=== PATIENT | male | born 1960 | race Caucasian/White ===

== ENCOUNTER 2017-10-04 08:13 | Inpatient (IN) ==
--- NOTE | 2017-10-04 08:26 | Emergency Department Report ---
General Adult HPI - General Chief complaint: Recheck/Abnormal Lab/Rx Stated complaint: critical high sodium level Time Seen by Provider: 10/04/17 08:20 Source: patient, other (ID STAFF, ID RECORDS) Mode of arrival: wheelchair Limitations: other (Non-verbal patient. ) - History of Present Illness HPI narrative: 57-year-old male presents to the emergency department from [facility] for evaluation regarding an elevated sodium level of 163. Patient has not been eating or drinking well recently. Patient is nonverbal with a history of cerebral palsy. He is at baseline mental status per [facility] staff. History is limited secondary to the cerebral palsy and the patient being nonverbal. No other obvious complaints or associated symptoms. He was at [facility] when his symptoms began a few days ago. Patient's durable power of attorney law clerk does not wish to pursue a feeding tube at this time. Patient is a do not resuscitate. - Related Data Home Medications Medication Instructions Recorded Confirmed Acetaminophen Supp [Tylenol Supp] 650 mg RECTALLY Q4H PRN 10/04/17 10/04/17 Acetaminophen [Acetaminophen Extra 1,000 mg PO TIDWM 10/04/17 10/04/17 Strength] Bisacodyl Supp [Dulcolax] 10 mg RECTALLY HS 10/04/17 10/04/17 Fleet Phospho-Soda Enema [Fleet 1 enema RECTALLY DAILY PRN 10/04/17 10/04/17 Enema] Gabapentin [Neurontin] 100 mg PO BID 10/04/17 10/04/17 Mag Hydrox/Aluminum Hyd/Simeth 30 ml PO Q4H PRN 10/04/17 10/04/17 [Alum-Mag Hydroxide-Simeth Liq] Magnesium Hydroxide [Milk of 30 ml PO Q12H PRN 10/04/17 10/04/17 Magnesia] Peg 3350 238 G Bottle [Miralax] 17 gm PO DAILY 10/04/17 10/04/17 Petrolatum,White/Lanolin [Vitamin 1 applicatio TP BID 10/04/17 10/04/17 A & D Ointment] Senna + Docusate [Senna Plus 2 tab PO PM 10/04/17 10/04/17 Tablet] Tramadol [Ultram] 50 mg PO DAILY PRN 10/04/17 10/04/17 Tramadol [Ultram] 50 mg PO QID 10/04/17 10/04/17 Allergies Allergy/AdvReac Type Severity Reaction Status Date / Time Penicillins Allergy Unknown Verified 10/04/17 08:59 Prostacyclin Analogues Allergy Unknown Verified 10/04/17 08:59 smallpox vaccine,live Allergy Unknown Verified 10/04/17 08:59 PROSTAPHLIN SMALL VACCINE AdvReac Unknown Uncoded 10/04/17 08:59 Review of Systems Limitations: ROS unobtainable due to patient's medical condition [facility] Patient Stated Medical History Gastroesophageal Reflux Yes Disease Other GI Yes: CONSTIPATION Other Hematologic Yes: LEUKOCYTOPENIA Medical History Updates: (1) Allergic rhinitis. (2) Seasonal allergies. (3) Cerebral palsy, quadriplegic. (4) MRSA abscesses. (5) Aspiration pneumonia. ( 6) Small bowel obstruction. (7) UTI (urinary tract infection). (8) Ileus. (9 ) Dextroscoliosis. (10) Fecal impaction of colon. (11) Constipation. (12) Hyperosmolality with hypernatremia. (13) Protein-calorie malnutrition, moderate. (14) Severe sepsis with acute organ dysfunction. (15) GERD ( gastroesophageal reflux disease). 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 - Social History Smoking status: Never smoker Substance use type: does not use Alcohol intake frequency: does not drink Physical Exam - Limitations Limitations: other (Non-verbal) - General General appearance: alert, in no apparent distress - Normal Exams: Head:: Normocephalic without trauma Eyes:: Pupils are PERRLA w/ EOMI, No scleral icterus, irritation, or foreign bodies noted ENMT:: No facial trauma, nasal exudates, pharyngeal erythema, or exudates are noted Dental: No fractured, loose, or missing teeth noted Neck:: without adenopathy Chest/Respirations:: Clear all brown, with good airflow, and symmetry bilaterally Cardiovascular:: Regular rate and rhythm, without murmur or gallop, Pulses 2+ all extremities, capillary refill, <2 seconds all extremities Abdomen:: Bowel sounds positive, soft, non-tender, non-distended, no hepatosplenomegaly, masses or bruits noted Lymphatic:: No lymphadenopathy, or lymphedema noted Musculoskeletal:: No tenderness, or deformity noted (+ chronic contractures noted. ), all extremities Integumentary:: No rashes, hives, or bruising noted, hair and nails, without abnormality Neurological:: Patient is alert Course Vital Signs Temperature 99.2 F 10/04/17 08:19 Respiratory Rate 17 10/04/17 08:19 Blood Pressure 108/70 10/04/17 08:19 Pulse Oximetry 96 10/04/17 08:19 Temperature 99.2 F 10/04/17 08:19 Pulse Rate 103 H 10/04/17 09:00 Respiratory Rate 17 10/04/17 08:19 Blood Pressure 102/65 10/04/17 09:00 Pulse Oximetry 96 10/04/17 08:19 Medical Decision Making - [facility] Narrative Medical decision making narrative: Labs / imaging were discussed in detail with Dr. Brito who is the hospitalist. Dr. Brito will accept the patient to her service for further evaluation and treatment. Patient appears to be suffering from dehydration and hypernatremia. Patient is given 500 mL of normal saline intravenously times one. Dr. Brito will handle antibiotic therapy as indicated following culture of urine at her request. Patient is admitted to the service of the hospitalist in improved condition. No further orders from accepting physician who is in agreement with the current plan of management. - Differential Diagnosis dehydration, metabolic disorder, pneumonia, UTI - Lab Data Lab Results 10/04/17 10/04/17 Range/Units 05:56 09:11 Troponin I < 0.012 (0-0.12) ng/ml Specimen Hemolysis 31 H (0-25) Ur Collection Type Urine, void-cc/notcc Urine Color [place] (YELLOW) Urine Clarity Cloudy Urine pH 6.0 (5.0-8.0) Ur Specific [place] 1.025 (1.015-1.025) Urine Protein 2+ A (NEGATIVE) Urine Glucose (UA) Negative (NEGATIVE) Urine Ketones Negative (NEGATIVE) Urine Occult Blood 3+ A (NEGATIVE) Urine Nitrate Positive A (NEGATIVE) Urine Bilirubin 1+ A (NEGATIVE) Urine Urobilinogen 4.0 A (NORMAL) EU/DL Ur Leukocyte Esterase 2+ A (NEGATIVE) Urine RBC 10-20 H (0-3) /HPF Urine WBC Tntc H (0-5) /HPF Urine WBC Clumps Few Urine Bacteria 4+ H (NEGATIVE) Ur Culture Indicated? Cult reflexed &setup - Radiology Data CXR - No obvious acute processes. - EKG Data EKG #1 EKG results narrative: Sinus tachycardia. 104 bpm. No STEMI. Disposition Time of Disposition: 09:20 (admit. Dr. Moran. ) - Seen By: physician
--- NOTE | 2017-10-04 09:27 | XRay Report ---
Indication: abnormal labs PROCEDURE: XR chest 1V: Encounter: Initial Comparison: April 19, 2015 Findings: Chest appears grossly stable. No focal consolidative pneumonia, gross pleural effusion or pneumothorax. Patient is rotated and angulated. Cardiomediastinal contours are grossly stable. Prior left IJ line has been removed. Overlying attending leads. Significant scoliosis in the thoracic spine. Impression: Grossly stable chest without acute cardiopulmonary disease. .
[2017-10-04] MEDS: SALINE FLUSH 10ml SYRINGE IVF PRN (09:49)
[2017-10-04 10:30] VITALS: BMI 20.9
[2017-10-04] MEDS ORDERED: ACETAMINOPHEN 650 MG SUPPOSITORY PR PRN ×2 (10:54→12:01)
--- NOTE | 2017-10-04 11:02 | History & Physical Report ---
History of Present Illness Date: 10/04/17 HPI: Fermin Dougherty is a 57 year old male who was admitted to the hospitalist service for severe hypernatremia (163). 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 History was obtained from his nurse at [facility]: Bradly has not been eating well for the last 2-3 weeks. He will only have a couple bites, if anything, but sometimes they can encourage him to drink a Mighty Shake. He has been clamping his lips together each time thickened liquids were offered. He's lost nearly 20 lbs over the last couple of months. The staff there ensure that he has a bowel movement at least every 2 days because he has a history of bowel obstructions. Sometimes his bowel movements are purely mucoid , but he did have a medium sized bowel movement on 10/03/17. He has not had a fever or any other signs of illness or changes, though it's been recently recommended that he have all his teeth extracted. He was on antibiotics in August for a dental infection. He was seen by Dr. Tran on 10/02/17, who ordered labs which were drawn on 10/04/17. Once the abnormal sodium level was reported, Dr. Tran recommended further evaluation at the hospital. Review of Systems ROS unobtainable: due to mental status Past Medical History Post measles encephalitis Spastic quadriplegia Allergic rhinitis MRSA abscesses Aspiration pneumonia Recurrent Small bowel obstruction History of UTI (urinary tract infection) Dextroscoliosis Fecal impaction of colon Constipation GERD (gastroesophageal reflux disease) Surgical History: EGD April, (Dr. Cramer): Unable to place PEG d/t abnormal anatomy. I & D Abscess of right shoulder in 2013 Family History Updates: Unobtainable - Social History Smoking status: Never smoker Substance use type: does not use Alcohol intake frequency: does not drink Housing: alf ([facility]) Social history: PCP: Dr. Tran Sister is DPOA Medications Home Medications Medication Instructions Recorded Confirmed Type Acetaminophen Supp [Tylenol Supp] 650 mg RECTALLY Q4H PRN 10/04/17 10/04/17 History Acetaminophen [Acetaminophen Extra 1,000 mg PO TIDWM 10/04/17 10/04/17 History Strength] Bisacodyl Supp [Dulcolax] 10 mg RECTALLY HS 10/04/17 10/04/17 History Fleet Phospho-Soda Enema [Fleet 1 enema RECTALLY DAILY PRN 10/04/17 10/04/17 History Enema] Gabapentin [Neurontin] 100 mg PO BID 10/04/17 10/04/17 History Mag Hydrox/Aluminum Hyd/Simeth 30 ml PO Q4H PRN 10/04/17 10/04/17 History [Alum-Mag Hydroxide-Simeth Liq] Magnesium Hydroxide [Milk of 30 ml PO Q12H PRN 10/04/17 10/04/17 History Magnesia] Peg 3350 238 G Bottle [Miralax] 17 gm PO DAILY 10/04/17 10/04/17 History Petrolatum,White/Lanolin [Vitamin 1 applicatio TP BID 10/04/17 10/04/17 History A & D Ointment] Senna + Docusate [Senna Plus 2 tab PO PM 10/04/17 10/04/17 History Tablet] Tramadol [Ultram] 50 mg PO DAILY PRN 10/04/17 10/04/17 History Tramadol [Ultram] 50 mg PO QID 10/04/17 10/04/17 History Allergies Allergy/AdvReac Type Severity Reaction Status Date / Time epoprostenol Allergy Unknown Verified 10/04/17 10:47 Penicillins Allergy Unknown Verified 10/04/17 08:59 Prostacyclin Analogues Allergy Unknown Verified 10/04/17 08:59 smallpox vaccine,live Allergy Unknown Verified 10/04/17 08:59 PROSTAPHLIN SMALL VACCINE AdvReac Unknown Uncoded 10/04/17 08:59 Exam Vital Signs: Temperature 98.7 F 10/04/17 10:17 Pulse Rate 80 10/04/17 10:17 Respiratory Rate 12 10/04/17 10:17 Blood Pressure 130/81 10/04/17 10:17 Pulse Oximetry 97 10/04/17 10:17 Height/Weight/BMI: Height 1.45 m Weight 43.9 kg Body Mass Index 20.9 - Constitutional Present: thin - Routine HEENT Exam Eye: Absent: conjunctival icterus, scleral injection ENT: Present: mucous membranes dry. Absent: dentition normal - Routine Neck Exam Present: supple - Routine Respiratory Exam Present: CTA bilaterally - Routine Cardiovascular Exam Present: RRR, S1, S2 - Routine Abdominal Exam Present: soft, non distended, non tender. Absent: normoactive bowel sounds ( hypoactive) - Routine Extremities Exam Present: no edema, pulses intact - Routine Skin Exam Present: intact, dry, warm, wounds (RN reports a small area of erythema on his back) - Routine Neurological Exam Present: alert (at baseline), motor deficit. Absent: moving all extremities, normal speech - Routine Psychiatric Exam Present: unable to assess Results - Labs CBC & Chem 7: 10/04/17 11:23 Assessment and Plan (1) Hypernatremia Current visit: Yes Status: Acute Assessment and Plan: IMPRESSION Severe hypernatremia [163] POA leukocytosis [11.7] POA Possible UTI vs asymptomatic bacteruria Post measles encephalitis Spastic quadriplegia Allergic rhinitis MRSA abscesses Aspiration pneumonia Recurrent Small bowel obstruction History of UTI (urinary tract infection) Dextroscoliosis Fecal impaction of colon Constipation GERD (gastroesophageal reflux disease) PLAN Admit to the hospitalist service, observation status. Recheck Na now and trend every 6 hours. Start D5W at 60 mL/hr with a goal sodium reduction of no more than 10 mEq/L over the next 24 hours. History of SBO: check abdominal film. UA indicative of UTI, minimally elevated wbc, however he is afebrile. He is incontinent of B/B. Send for culture and monitor symptoms for now. Consult speech therapy. Of note, PEG placement has been considered but EGD in 2014 revealed a gastric anatomy that was not conducive to PEG placement. Other pertinent labs checked this am: Hgb 15.6, K 3.9, BUN 28, Cr 0.8, TSH 0.65 , prealbumin 26.5. Code status: DNR. Discussed with [facility] staff, old records reviewed. DVT Prophylaxis: SCD's GI Prophylaxis: Protonix Resuscitation Status: Do Not Resuscitate - Physician Narrative Narrative: Date: 10/04/17 Time: 1050 I have independently evaluated and examined this patient. I reviewed the chart, the patient's history, and the CLOTH BEAMER/PA's documented findings as above. We discussed and formulated the assessment and plan as above with additions as below. Patient is nonverbal. History as outlined above. In general, the patient is alert, nonverbal cooperative with exam, and in no respiratory distress.Severe scoliosis noted. HEENT: Head is atraumatic, normocephalic, no conjunctival petechiae, no oral thrush, mucous membranes are dry, he has very poor dentition. Lungs: Clear to auscultation without wheezes, crackles or rhonchi, poor respiratory effort CV: Regular rate and rhythm without murmur Abdomen: Soft, scaphoid, nontender, bowel sounds are present, there is no guarding no rebound. Extremities: No clubbing, no cyanosis, no edema. Marked deformity especially in hands. Skin: Warm and dry ,no sign of rash Neuro: Patient is cooperative but nonverbal Will replace sodium slowly. May need to address shelter goals with DPOA if pt's po intake does not improve. Previous attempts at placing a PEG were unsuccessful secondary to anatomy. Pt has poor dentition-apparently it has been recommended that he undergo a full mouth extraction- ? dental pain be the reason why the pt has stopped taking po recently. Hospital Course Summary Disclaimer: The visit summary below is not to be considered part of the above Progress Note. Hospital Course: 10/04/17 Admit to the hospitalist service, observation status. Recheck Na now and trend every 6 hours. Start D5W at 60 mL/hr with a goal sodium reduction of no more than 10 mEq/L over the next 24 hours. History of SBO: check abdominal film. UA indicative of UTI, minimally elevated wbc, however he is afebrile. He is incontinent of B/B. Send for culture and monitor symptoms for now. Consult speech therapy. Of note, PEG placement has been considered but EGD in 2014 revealed a gastric anatomy that was not conducive to PEG placement. Other pertinent labs checked this am: Hgb 15.6, K 3.9, BUN 28, Cr 0.8, TSH 0.65 , prealbumin 26.5. Code status: DNR.
[2017-10-04] MEDS: D5W 1,000 ML IV SCH (11:43)
[2017-10-04] MEDS ORDERED: ACETAMINOPHEN 500 MG TABLET PO SCH (12:00)
[2017-10-04] MEDS ORDERED: TRAMADOL 50 MG TABLET PO PRN (12:05)
--- NOTE | 2017-10-04 12:13 | XRay Report ---
Indication: history of SBO PROCEDURE: XR abdomen 1V: Encounter: Initial Comparison: April 08, 2015 Findings: Diffusely gas-filled small and large bowel without focal dilatation or evidence of acute obstruction. Gastrostomy tube noted. No gross free air on these supine views. Mild stool burden in the colon. Bony structures show no acute findings. Impression: No evidence of acute obstruction. .
[2017-10-04] MEDS ORDERED: TRAMADOL 50 MG TABLET PO SCH (13:00)
[2017-10-04] MEDS ORDERED: PANTOPRAZOLE 20 MG TABLET PO SCH (17:00)
[2017-10-04] MEDS: SENNA + DOCUSATE TABLET PO SCH (21:06)
[2017-10-04] MEDS: GABAPENTIN 100 MG CAPSULE PO SCH (21:06)
[2017-10-04] MEDS: VITAMINS A TOP SCH (22:13)
[2017-10-04] MEDS: [UNRECOGNIZED DRUG - OTHER] TOP SCH (22:13)
[2017-10-04] MEDS: BISACODYL 10 MG SUPPOSITORY RECTALLY SCH (22:13)
[2017-10-05] MEDS: D5W 1,000 ML IV SCH ×2 (03:02→20:03)
[2017-10-05] MEDS: GABAPENTIN 100 MG CAPSULE PO SCH ×3 (08:52→20:10)
--- NOTE | 2017-10-05 13:13 | Progress Note ---
- Date 10/05/17 Subjective: Bradly is seen this morning while resting in bed. He is alert with open eyes however, remains nonverbal during examination. Sleep make eye contact, however, then looks away to the left. It is noted that he often puts his fingers in his mouth, however. Nursing staff reports this is a normal behavior for him. He also chronically grinds his teeth. He was seen by speech therapy this morning. Objective Vital signs: Temperature 97.7 F 10/05/17 08:00 Pulse Rate 100 10/05/17 08:00 Respiratory Rate 16 10/05/17 08:00 Blood Pressure 109/67 10/05/17 08:00 Pulse Oximetry 97 10/05/17 08:00 - Constitutional Present: no acute distress, well nourished, well developed - Routine HEENT Exam Eye: Present: EOMI ENT: Present: mucous membranes moist, dentition normal - Routine Respiratory Exam Present: CTA bilaterally. Absent: wheezes - Routine Cardiovascular Exam Present: RRR, S1, S2. Absent: murmur - Routine Abdominal Exam Present: soft, normoactive bowel sounds, non distended. Absent: tenderness - Routine Extremities Exam Present: no edema - Routine Skin Exam Present: intact, dry, warm - Routine Neurological Exam Present: alert, CN II-XII intact - Routine Lymphatic Exam Lymphatic: Absent: adenopathy - Routine Psychiatric Exam Present: cooperative Results - Labs CBC & Chem 7: 10/05/17 10:53 Assessment and Plan (1) Hypernatremia Current visit: Yes Status: Acute Assessment and Plan: IMPRESSION Severe hypernatremia [163] POA Leukocytosis [11.7] POA Dysphagia Possible UTI vs asymptomatic bacteruria Post measles encephalitis Spastic quadriplegia Allergic rhinitis HX of MRSA abscesses Hx of aspiration pneumonia Hx of recurrent small bowel obstruction Hx of UTI (urinary tract infection) Dextroscoliosis Constipation Hx of fecal impaction of colon GERD (gastroesophageal reflux disease) PLAN Given persistent severe hypernatremia, will change status to inpatient. Continue to monitor serial sodium levels every 6 hours. Sodium does continue to slowly trend down. Continues to be on D5W at 60 ML per hour. Discussed with speech therapy. Recommends pured diet with syrup and nectar fluids and crushed medications. Encourage PO intake. Awaiting C/S of urine prior to initiation of antibiotic therapy, as this may be asymptomatic bacteruria. Patient does not appear to have any acute symptoms and does not appear septic at this time. We will continue to follow routine labs, and monitor for fever. At this time Urine culture reveals no growth. Case discussed with attending, Dr Gil. DVT Prophylaxis: SCD's Resuscitation Status: Do Not Resuscitate - Time spent with patient Time with patient PN: 25 minutes - Physician Narrative Physician: Nitesh Gil MD Narrative: Date: 10/05/17 Time: 1430 Have independently interviewed and examined pt. Chart reviewed. Case discussed with CM and my DIRECTOR [employer]ENCY. Care plan developed with my supervision; agree with above. Resting in bed-eyes open, but non verbal. Not restless or agitated. Sodium decreasing gradually. Breathing stable. Lungs: decreased, no distress CV: regular EXT: thin, no edema. MSE: awake no agitation Plan: Continue with IVF. Check on urine culture - not seeing signs of sepsis at this time. Likely able to decrease frequency of sodium check as is decreasing slowly. Will recheck lab tomorrow. Hospital Course Summary Disclaimer: The visit summary below is not to be considered part of the above Progress Note. Hospital Course: 10/04/17 Admission - OBS status Admit to the hospitalist service, observation status. Recheck Na now and trend every 6 hours. Start D5W at 60 mL/hr with a goal sodium reduction of no more than 10 mEq/L over the next 24 hours. History of SBO: check abdominal film. UA indicative of UTI, minimally elevated wbc, however he is afebrile. He is incontinent of B/B. Send for culture and monitor symptoms for now. Consult speech therapy. Of note, PEG placement has been considered but EGD in 2014 revealed a gastric anatomy that was not conducive to PEG placement. Other pertinent labs checked this am: Hgb 15.6, K 3.9, BUN 28, Cr 0.8, TSH 0.65 , prealbumin 26.5. Code status: DNR. 10/05/17 Given persistent severe hypernatremia, will change status to inpatient. Continue to monitor serial sodium levels every 6 hours. Sodium does continue to slowly trend down. Continues to be on D5W at 60 ML per hour. Discussed with speech therapy. Recommends pured diet with syrup and nectar fluids and crushed medications. Encourage PO intake. Awaiting C/S of urine prior to initiation of antibiotic therapy, as this may be asymptomatic bacteruria. Patient does not appear to have any acute symptoms and does not appear septic at this time. We will continue to follow routine labs, and monitor for fever. At this time Urine culture reveals no growth.
[2017-10-05] MEDS: [UNRECOGNIZED DRUG - OTHER] TOP SCH ×2 (16:25→20:05)
[2017-10-05] MEDS: VITAMINS A TOP SCH ×2 (16:25→20:05)
[2017-10-05] MEDS: SENNA + DOCUSATE TABLET PO SCH ×2 (20:05→20:10)
[2017-10-05] MEDS: BISACODYL 10 MG SUPPOSITORY RECTALLY SCH (20:05)
[2017-10-06] MEDS: GABAPENTIN 100 MG CAPSULE PO SCH ×2 (08:05→22:56)
[2017-10-06] MEDS: [UNRECOGNIZED DRUG - OTHER] TOP SCH ×2 (08:06→22:57)
[2017-10-06] MEDS: VITAMINS A TOP SCH ×2 (08:06→22:57)
[2017-10-06] MEDS: CEFTRIAXONE 1 G in NS 50 ML IV SCH (11:51)
[2017-10-06] MEDS: SALINE FLUSH 10ml SYRINGE IVF PRN (11:53)
--- NOTE | 2017-10-06 13:06 | Progress Note ---
- Date 10/06/17 Subjective: Ladonna is seen this morning in follow-up for severe hypernatremia. He is alert, does not appear to be in any acute distress. He does remain nonverbal as this is his baseline. Due to his cerebral palsy. Has been eating. Diet with assistance from staff, ported he ate approximately 25% of dinner him and bites of breakfast. Objective Vital signs: Temperature 98.9 F 10/06/17 07:56 Pulse Rate 94 10/06/17 07:56 Respiratory Rate 20 10/06/17 07:56 Blood Pressure 95/63 10/06/17 07:56 Pulse Oximetry 94 10/06/17 07:56 Height/Weight/BMI: Height 1.45 m Weight 48.5 kg Body Mass Index 20.9 - Constitutional Present: no acute distress, well nourished, well developed - Routine HEENT Exam Eye: Present: EOMI ENT: Present: mucous membranes moist, dentition normal - Routine Respiratory Exam Present: CTA bilaterally. Absent: wheezes - Routine Cardiovascular Exam Present: RRR, S1, S2. Absent: murmur - Routine Abdominal Exam Present: soft, normoactive bowel sounds, non distended. Absent: tenderness - Routine Skin Exam Present: intact, dry, warm - Routine Neurological Exam Present: alert, CN II-XII intact, altered mental status - Routine Lymphatic Exam Lymphatic: Absent: adenopathy - Routine Psychiatric Exam Present: normal affect (baseline mentation), cooperative Results - Labs CBC & Chem 7: 10/06/17 03:54 10/06/17 03:54 Assessment and Plan (1) Hypernatremia Current visit: Yes Status: Acute Assessment and Plan: IMPRESSION Severe hypernatremia [163] POA Leukocytosis [11.7] POA Dysphagia UTI with E. coli - sensitive to Rocephin Post measles encephalitis Spastic quadriplegia Allergic rhinitis HX of MRSA abscesses Hx of aspiration pneumonia Hx of recurrent small bowel obstruction Hx of UTI (urinary tract infection) Dextroscoliosis Constipation Hx of fecal impaction of colon GERD (gastroesophageal reflux disease) PLAN Sodium continues to trend down slowly, today at 151. Potassium remains normal. In culture did grow positive for Escherichia coli. Patient started on IV Rocephin for antimicrobial coverage. White count was noted to be elevated at 14.9 this morning. He remains afebrile. Continue to encourage oral intake - pureed with thickened liquids. Discussed with attending, Dr Gil. DVT Prophylaxis: SCD's Resuscitation Status: Do Not Resuscitate - Time spent with patient Time with patient PN: 25 minutes - Physician Narrative Narrative: Date: 10/06/17 Time: 1615 Have independently interviewed and examined pt. Chart reviewed. Case discussed with my TABLE GAMES SHIFT MANAGER. Care plan developed with my supervision; agree with above. Resting in bed, eyes open but nonverbal. Oral drive with slight increase. Breathing well. Lungs: decreased, no distress CV: regular EXT: thin, no edema. Plan: Continue with D5W for hydration. Start Rocephin for urinary coverage. Encourage oral intake. Monitor lab. Hospital Course Summary Disclaimer: The visit summary below is not to be considered part of the above Progress Note. Hospital Course: 10/04/17 Admission - OBS status Admit to the hospitalist service, observation status. Recheck Na now and trend every 6 hours. Start D5W at 60 mL/hr with a goal sodium reduction of no more than 10 mEq/L over the next 24 hours. History of SBO: check abdominal film. UA indicative of UTI, minimally elevated wbc, however he is afebrile. He is incontinent of B/B. Send for culture and monitor symptoms for now. Consult speech therapy. Of note, PEG placement has been considered but EGD in 2014 revealed a gastric anatomy that was not conducive to PEG placement. Other pertinent labs checked this am: Hgb 15.6, K 3.9, BUN 28, Cr 0.8, TSH 0.65 , prealbumin 26.5. Code status: DNR. 10/05/17 Given persistent severe hypernatremia, will change status to inpatient. Continue to monitor serial sodium levels every 6 hours. Sodium does continue to slowly trend down. Continues to be on D5W at 60 ML per hour. Discussed with speech therapy. Recommends pured diet with syrup and nectar fluids and crushed medications. Encourage PO intake. Awaiting C/S of urine prior to initiation of antibiotic therapy, as this may be asymptomatic bacteruria. Patient does not appear to have any acute symptoms and does not appear septic at this time. We will continue to follow routine labs, and monitor for fever. At this time Urine culture reveals no growth. 10/06/17 Sodium continues to trend down slowly, today at 151. Potassium remains normal In culture did grow positive for Escherichia coli. Patient started on IV Rocephin for antimicrobial coverage. White count was noted to be elevated at 14.9 this morning. He remains afebrile Continue to encourage oral intake- pureed with thickened liquids
[2017-10-06] MEDS: D5W 1,000 ML IV SCH (14:40)
[2017-10-06] MEDS: BISACODYL 10 MG SUPPOSITORY RECTALLY SCH (22:56)
[2017-10-06] MEDS: SENNA + DOCUSATE TABLET PO SCH (22:56)
[2017-10-07] MEDS: D5W 1,000 ML IV SCH (09:01)
[2017-10-07] MEDS: GABAPENTIN 100 MG CAPSULE PO SCH ×2 (09:01→20:08)
[2017-10-07] MEDS: VITAMINS A TOP SCH ×2 (09:03→20:08)
[2017-10-07] MEDS: [UNRECOGNIZED DRUG - OTHER] TOP SCH ×2 (09:03→20:08)
--- NOTE | 2017-10-07 09:18 | Progress Note ---
- Date 10/07/17 Subjective: Bradly is seen this morning while resting in bed. He is resting comfortably without distress, alert with eyes open. Bowels moving regularly. Vitals reviewed BP 97/65. Objective Vital signs: Temperature 96.4 F L 10/06/17 23:17 Pulse Rate 104 H 10/07/17 08:00 Respiratory Rate 14 10/06/17 23:17 Blood Pressure 97/65 10/07/17 08:00 Pulse Oximetry 95 10/07/17 08:00 Height/Weight/BMI: Height 1.45 m Weight 47.4 kg Body Mass Index 20.9 - Constitutional Present: no acute distress, well nourished, well developed - Routine HEENT Exam Eye: Present: EOMI ENT: Present: mucous membranes moist, dentition normal - Routine Respiratory Exam Present: CTA bilaterally. Absent: wheezes - Routine Cardiovascular Exam Present: RRR, S1, S2. Absent: murmur - Routine Abdominal Exam Present: soft, normoactive bowel sounds, non distended. Absent: tenderness - Routine Extremities Exam Present: normal capillary refill - Routine Skin Exam Present: intact, dry, warm - Routine Neurological Exam Present: alert, oriented X3, CN II-XII intact - Routine Lymphatic Exam Lymphatic: Absent: adenopathy - Routine Psychiatric Exam Present: normal affect Results - Labs CBC & Chem 7: 10/07/17 04:20 10/07/17 04:20 Assessment and Plan (1) Hypernatremia Current visit: Yes Status: Acute Assessment and Plan: IMPRESSION Severe hypernatremia [163] POA UTI with E. coli - sensitive to Rocephin Leukocytosis [11.7] POA Dysphagia Post measles encephalitis Spastic quadriplegia Allergic rhinitis HX of MRSA abscesses Hx of aspiration pneumonia Hx of recurrent small bowel obstruction Hx of UTI (urinary tract infection) Dextroscoliosis Constipation Hx of fecal impaction of colon GERD (gastroesophageal reflux disease) PLAN Sodium continues to Improve- NA today 148. Continues on D5W IV fluids Continues on IV Rocephin for antimicrobial coverage. Hypokalemia potassium 3.2 today. Will given one time PO dose of potassium supplementation Continue to encourage oral intake - pureed with thickened liquids. Discussed with attending, Dr Gil. Detweoler Will change IVF to D5W with 20mEq KCl at 75cc/hr. DVT Prophylaxis: SCD's Resuscitation Status: Do Not Resuscitate - Time spent with patient Time with patient PN: 25 minutes - Physician Narrative Physician: Nitesh Gil MD Narrative: Date: 10/07/17 Time: 1120 Have independently interviewed and examined pt. Chart reviewed. Case discussed with my AUTOMOTIVE SOFTWARE ENGINEER. Care plan developed with my supervision; agree with above. Resting in bed-eyes open, moves head and left arm. Non verbal. Sodium improving. Oral drive decrease but making slow gains. Breathing well. Had 2 stools yesterday. Lungs: decreased, no crackles or wheezes; breathing comfortably on RA without distress. CV: regular EXT: thin, no edema Plan: Will change IVF to D5W with 20KCl at 75cc/hr. Continue with Rocephin for urinary coverage. Encourage oral intake. Monitor lab. Hospital Course Summary Disclaimer: The visit summary below is not to be considered part of the above Progress Note. Hospital Course: 10/04/17 Admission - OBS status Admit to the hospitalist service, observation status. Recheck Na now and trend every 6 hours. Start D5W at 60 mL/hr with a goal sodium reduction of no more than 10 mEq/L over the next 24 hours. History of SBO: check abdominal film. UA indicative of UTI, minimally elevated wbc, however he is afebrile. He is incontinent of B/B. Send for culture and monitor symptoms for now. Consult speech therapy. Of note, PEG placement has been considered but EGD in 2014 revealed a gastric anatomy that was not conducive to PEG placement. Other pertinent labs checked this am: Hgb 15.6, K 3.9, BUN 28, Cr 0.8, TSH 0.65 , prealbumin 26.5. Code status: DNR. 10/05/17 Given persistent severe hypernatremia, will change status to inpatient. Continue to monitor serial sodium levels every 6 hours. Sodium does continue to slowly trend down. Continues to be on D5W at 60 ML per hour. Discussed with speech therapy. Recommends pured diet with syrup and nectar fluids and crushed medications. Encourage PO intake. Awaiting C/S of urine prior to initiation of antibiotic therapy, as this may be asymptomatic bacteruria. Patient does not appear to have any acute symptoms and does not appear septic at this time. We will continue to follow routine labs, and monitor for fever. At this time Urine culture reveals no growth. 10/06/17 Sodium continues to trend down slowly, today at 151. Potassium remains normal In culture did grow positive for Escherichia coli. Patient started on IV Rocephin for antimicrobial coverage. White count was noted to be elevated at 14.9 this morning. He remains afebrile Continue to encourage oral intake- pureed with thickened liquids 10/07/17 Sodium continues to Improve- NA today 148. Continues on D5W IV fluids; with decreased potassium, will change to D5W with 20mEq KCl at 75cc/hr. Continues on IV Rocephin for antimicrobial coverage. Hypokalemia potassium 3.2 today. Will given one time PO dose of potassium supplementation Pureed with thickened liquids.
[2017-10-07] MEDS: CEFTRIAXONE 1 G in NS 50 ML IV SCH (09:22)
[2017-10-07] MEDS: POTASSIUM CHLORIDE INJ 20 MEQ in D5W 1,000 ML IV SCH (11:20)
[2017-10-07] MEDS: BISACODYL 10 MG SUPPOSITORY RECTALLY SCH (20:08)
[2017-10-07] MEDS: SENNA + DOCUSATE TABLET PO SCH (20:08)
[2017-10-07] MEDS ORDERED: FALL RISK - PHARMACY CONSULT XX ONE (21:34)
[2017-10-08] MEDS: POTASSIUM CHLORIDE INJ 20 MEQ in D5W 1,000 ML IV SCH ×3 (02:44→20:13)
[2017-10-08] MEDS: [UNRECOGNIZED DRUG - OTHER] TOP SCH ×2 (08:54→20:42)
[2017-10-08] MEDS: GABAPENTIN 100 MG CAPSULE PO SCH ×2 (08:54→20:42)
[2017-10-08] MEDS: VITAMINS A TOP SCH ×2 (08:54→20:42)
--- NOTE | 2017-10-08 10:16 | Progress Note ---
- Date 10/08/17 Subjective: Bradly was seen during breakfast. He took in 3/4 of a Mighty Shake and was eating his pureed meal (slowly). He was in no distress but his cheeks appeared flushed. His back was slightly diaphoretic. He was breathing comfortably and is maintaining sats on room air. He continues to place his finger in his mouth, towards the right jaw - speech therapy has seen this frequently, raising concern for a recurrent dental infection. He had a large bowel movement early this am. Objective Vital signs: Temperature 97.7 F 10/08/17 06:59 Pulse Rate 107 H 10/08/17 06:59 Respiratory Rate 12 10/08/17 06:59 Blood Pressure 120/72 10/08/17 06:59 Pulse Oximetry 97 10/08/17 06:59 Height/Weight/BMI: Height 1.45 m Weight 47.4 kg Body Mass Index 20.9 - Constitutional Present: no acute distress, thin - Routine HEENT Exam Head: Present: normocephalic ENT: Absent: dentition normal (refuses inspection; places finger into right lower mouth often) Comments: no left mandibular erythema or swelling - Routine Respiratory Exam Present: CTA bilaterally - Routine Cardiovascular Exam Present: RRR, S1, S2 - Routine Abdominal Exam Present: soft, normoactive bowel sounds, non tender, distended (minimal) - Routine Extremities Exam Present: no edema - Routine Musculoskeletal Exam Musculoskeletal: Present: no joint swelling - Routine Skin Exam Present: warm (face was flushed). Absent: dry (back slightly diaphoretic) - Routine Neurological Exam Present: alert - Routine Psychiatric Exam Present: unable to assess Results - Labs CBC & Chem 7: 10/08/17 04:03 10/08/17 04:03 Assessment and Plan (1) Hypernatremia Current visit: Yes Status: Acute Assessment and Plan: IMPRESSION Severe hypernatremia [163] POA - improving UTI with E. coli - sensitive to Rocephin Leukocytosis [11.7] POA Hypokalemia, not POA Recent dental infection Dysphagia Post measles encephalitis Spastic quadriplegia Allergic rhinitis HX of MRSA abscesses Hx of aspiration pneumonia Hx of recurrent small bowel obstruction Hx of UTI (urinary tract infection) Dextroscoliosis Constipation Hx of fecal impaction of colon GERD (gastroesophageal reflux disease) PLAN WBC increased to 17.3 despite ceftriaxone-sensitive E. coli UTI. Will check CXR because of aspiration history. Consider dental etiology; could start clindamycin or metronidazole in conjunction with ceftriaxone; or change abx to pip/tazo to cover both urinary and oral sources. Gross exam does not correlate with a deep space inspection since he is able to open his mouth to eat and swallow without difficulty, but we have not been successful in inspecting his oral cavity. This would require sedation. We do know that he had a recent dental infection and is due to have all his teeth pulled out. Sodium decreased to 145. Oral intake still poor; continue IVF. Hypokalemia has been corrected. Discussed with Dr. Gil, speech therapy, and RN. Jeffery Will add Clindamycin for better coverage of anaerobe. DVT Prophylaxis: SCD's Resuscitation Status: Do Not Resuscitate - Time spent with patient Time with patient PN: 25 minutes - Physician Narrative Physician: Nitesh Gil MD Narrative: Date: 10/08/17 Time: 1215 Have independently interviewed and examined pt. Chart reviewed. Case discussed with nursing and my SEMICONDUCTOR EQUIPMENT TECHNICIAN. Care plan developed with my supervision; agree with above. Resting in bed. Nursing notes will take Mity shake with encouraging. Passing stool. Breathing comfortably on RA. Lungs: decreased, no crackles or wheeze. CV: regular AB: soft nd BS present. No pain or guarding on exam. EXT: thin Plan: CXR showing no pneumonia, but increase of bowel gas--did encourage nursing to use fleets to help pt expel gas. Will add clindamycin for improvement of anaerobic coverage secondary to increased WBC despite treatment with Rocephin. Sodium improving. Continue with supportive care. Hospital Course Summary Disclaimer: The visit summary below is not to be considered part of the above Progress Note. Hospital Course: 10/04/17 Admission - OBS status Admit to the hospitalist service, observation status. Recheck Na now and trend every 6 hours. Start D5W at 60 mL/hr with a goal sodium reduction of no more than 10 mEq/L over the next 24 hours. History of SBO: check abdominal film. UA indicative of UTI, minimally elevated wbc, however he is afebrile. He is incontinent of B/B. Send for culture and monitor symptoms for now. Consult speech therapy. Of note, PEG placement has been considered but EGD in 2014 revealed a gastric anatomy that was not conducive to PEG placement. Other pertinent labs checked this am: Hgb 15.6, K 3.9, BUN 28, Cr 0.8, TSH 0.65 , prealbumin 26.5. Code status: DNR. 10/05/17 Given persistent severe hypernatremia, will change status to inpatient. Continue to monitor serial sodium levels every 6 hours. Sodium does continue to slowly trend down. Continues to be on D5W at 60 ML per hour. Discussed with speech therapy. Recommends pured diet with syrup and nectar fluids and crushed medications. Encourage PO intake. Awaiting C/S of urine prior to initiation of antibiotic therapy, as this may be asymptomatic bacteruria. Patient does not appear to have any acute symptoms and does not appear septic at this time. We will continue to follow routine labs, and monitor for fever. At this time Urine culture reveals no growth. 10/06/17 Sodium continues to trend down slowly, today at 151. Potassium remains normal In culture did grow positive for Escherichia coli. Patient started on IV Rocephin for antimicrobial coverage. White count was noted to be elevated at 14.9 this morning. He remains afebrile Continue to encourage oral intake- pureed with thickened liquids 10/07/17 Sodium continues to Improve- NA today 148. Continues on D5W IV fluids; with decreased potassium, will change to D5W with 20mEq KCl at 75cc/hr. Continues on IV Rocephin for antimicrobial coverage. Hypokalemia potassium 3.2 today. Will given one time PO dose of potassium supplementation Pureed with thickened liquids. 10/08/17 WBC increased to 17.3 despite ceftriaxone-sensitive E. coli UTI. Will check CXR because of aspiration history. Consider dental etiology; will start clindamycin. Gross exam does not correlate with a deep space inspection since he is able to open his mouth to eat and swallow without difficulty, but we have not been successful in inspecting his oral cavity. This would require sedation. We do know that he had a recent dental infection and is due to have all his teeth pulled out. Sodium decreased to 145. Oral intake still poor; continue IVF. Hypokalemia has been corrected. CXR not showing infiltrate. Increased bowel gas noted. Nursing to give fleets to help motivated bowel gas.
[2017-10-08] MEDS: CEFTRIAXONE 1 G in NS 50 ML IV SCH (10:24)
--- NOTE | 2017-10-08 11:59 | XRay Report ---
Indication: leukocytosis; history of aspiration PROCEDURE: XR chest 1V: Encounter: Initial Comparison: 10/04/2017 Findings: There is moderate dilated bowel below the left and right hemidiaphragm with expiratory technique of the lung. Trachea is midline. Heart size is normal. The lungs are clear. There is no focal opacity to suggest atelectasis or pneumonia. No mediastinal or hilar adenopathy. No pleural effusion. There is no significant tortuosity of the descending thoracic aorta. There is mild degenerative disc disease of the thoracic spine. IMPRESSION: Expiratory exam with bibasilar atelectasis and moderate dilated bowel below the diaphragm which may represent stomach or large bowel.. .
[2017-10-08] MEDS: FLEET PHOSPHO - SODA ENEMA 133ml PR PRN (12:58)
[2017-10-08] MEDS: CLINDAMYCIN PB 600 MG/50 ML BAG IV SCH ×3 (14:39→23:30)
[2017-10-08] MEDS: SENNA + DOCUSATE TABLET PO SCH (20:42)
[2017-10-08] MEDS: BISACODYL 10 MG SUPPOSITORY RECTALLY SCH (20:48)
[2017-10-09] MEDS: CLINDAMYCIN PB 600 MG/50 ML BAG IV SCH ×4 (05:45→23:55)
[2017-10-09] MEDS: POTASSIUM CHLORIDE INJ 20 MEQ in D5W 1,000 ML IV SCH ×2 (07:41→19:20)
[2017-10-09] MEDS: FLEET PHOSPHO - SODA ENEMA 133ml PR PRN (08:11)
[2017-10-09] MEDS: VITAMINS A TOP SCH ×2 (08:12→20:12)
[2017-10-09] MEDS: [UNRECOGNIZED DRUG - OTHER] TOP SCH ×2 (08:12→20:12)
[2017-10-09] MEDS: GABAPENTIN 100 MG CAPSULE PO SCH ×2 (10:00→20:11)
[2017-10-09] MEDS: CEFTRIAXONE 1 G in NS 50 ML IV SCH (10:00)
--- NOTE | 2017-10-09 14:25 | Progress Note ---
- Date 10/09/17 Subjective: Bradly is seen this afternoon while resting in bed with the TV on. Nursing reports that he has not been eating as well today as he has been. He appears in no distress and is breathing easily on room air. On exam, he repeatedly places his finger slightly in his mouth for brief periods of time and then removes it. Nursing states he just received another fleets enema. He remains afebrile and vital signs stable. WBC continues to trend up (WBC 21.8) with 2% bands. Persistent hypernatremia (Na 146). Objective Vital signs: Temperature 96.8 F 10/09/17 07:35 Pulse Rate 88 10/09/17 07:35 Respiratory Rate 16 10/09/17 07:35 Blood Pressure 110/73 10/09/17 07:35 Pulse Oximetry 100 10/09/17 07:35 Rhythm: Normal Sinus Rhythm Height/Weight/BMI: Height 4 ft 9 in Weight 105 lb 9.623 oz Body Mass Index 20.9 Comments: Patient resting in bed, alert and in no apparent distress. - Constitutional Present: no acute distress, thin, cooperative - Routine HEENT Exam Head: Present: normocephalic, atraumatic Eye: Present: PERRL. Absent: conjunctival icterus ENT: Present: mucous membranes dry Comments: unable to fully assess dentition. - Routine Respiratory Exam Present: CTA bilaterally. Absent: dyspnea, rales, respiratory distress, rhonchi , stridor, wheezes - Routine Cardiovascular Exam Present: RRR, S1, S2 - Routine Abdominal Exam Present: soft, normoactive bowel sounds. Absent: guarding - Routine Extremities Exam Present: no edema - Routine Back/Spine/Pelvis Exam Back/Spine: Absent: vertebral tenderness, warmth - Routine Musculoskeletal Exam Musculoskeletal: Present: no clubbing or cyanosis, contractures - Routine Skin Exam Present: dry, warm. Absent: jaundice Comments: afebrile. - Routine Neurological Exam Present: alert - Routine Lymphatic Exam Lymphatic: Absent: lymphedema - Routine Psychiatric Exam Present: cooperative Results - Labs CBC & Chem 7: 10/09/17 04:05 10/09/17 05:37 - Imaging and Cardiology Chest x-ray Status: image reviewed by me Additional comments: Date of Exam: 10/08/17 Type of Exam(s): XR chest 1V Reason for Exam(s): leukocytosis; history of aspiration Indication: leukocytosis; history of aspiration PROCEDURE: XR chest 1V: Encounter: Initial Comparison: 10/04/2017 Findings: There is moderate dilated bowel below the left and right hemidiaphragm with expiratory technique of the lung. Trachea is midline. Heart size is normal. The lungs are clear. There is no focal opacity to suggest atelectasis or pneumonia. No mediastinal or hilar adenopathy. No pleural effusion. There is no significant tortuosity of the descending thoracic aorta. There is mild degenerative disc disease of the thoracic spine. IMPRESSION: Expiratory exam with bibasilar atelectasis and moderate dilated bowel below the diaphragm which may represent stomach or large bowel.. Assessment and Plan (1) Hypernatremia Current visit: Yes Status: Acute Assessment and Plan: IMPRESSION Severe hypernatremia [163] POA - improving. UTI with E. coli - sensitive to Rocephin. Leukocytosis [11.7] POA Hypokalemia, not POA - resolved. Recent dental infection Dysphagia Post measles encephalitis Spastic quadriplegia Allergic rhinitis HX of MRSA abscesses Hx of aspiration pneumonia Hx of recurrent small bowel obstruction Hx of UTI (urinary tract infection) Dextroscoliosis Constipation Hx of fecal impaction of colon GERD (gastroesophageal reflux disease) PLAN - 10/09/17: WBC continues to trend up (WBC 21.8) with 2% bandemia. Patient remains afebrile. Continue treatment of E.coli UTI with Rocephin (day 3). Continue clindamycin for possible dental infection (day 1). Gross exam does not correlate with a deep space inspection since he is able to open his mouth to eat and swallow without difficulty, but we have not been successful in inspecting his oral cavity. This would require sedation. We do know that he had a recent dental infection and is due to have all his teeth pulled out. CXR revealed bibasilar atelectasis. Continue to monitor respiratory function closely. Sodium stable at 145. Oral intake poor. Continue D5w with KCl at 60cc/hr. Recheck labs in AM to monitor blood counts, electrolytes and renal function. DVT Prophylaxis: SCD's Resuscitation Status: Do Not Resuscitate - Time spent with patient Time with patient PN: 25 minutes - Physician Narrative Physician: Nitesh Gil MD Narrative: Date: 10/09/17 Time: 1610 Have independently interviewed and examined pt. Chart reviewed. Case discussed with CM and my PA. Care plan developed with my supervision; agree with above. Resting in bed, more animated but looking uncomfortable. Pointing towards mouth. Oral intake still low. WBC with elevation. Sodium close to normal. Lungs: decreased, no distress CV: regular AB; soft nt BS decreased EXT: thin Plan: Continue Rocephin/Clindamycin for antimicrobial coverage. Will schedule acetaminophen 650mg QID to try to help pain. Continue IVF for support and to normalize sodium. Monitor lab. Hospital Course Summary Disclaimer: The visit summary below is not to be considered part of the above Progress Note. Hospital Course: 10/04/17 Admission - OBS status Admit to the hospitalist service, observation status. Recheck Na now and trend every 6 hours. Start D5W at 60 mL/hr with a goal sodium reduction of no more than 10 mEq/L over the next 24 hours. History of SBO: check abdominal film. UA indicative of UTI, minimally elevated wbc, however he is afebrile. He is incontinent of B/B. Send for culture and monitor symptoms for now. Consult speech therapy. Of note, PEG placement has been considered but EGD in 2014 revealed a gastric anatomy that was not conducive to PEG placement. Other pertinent labs checked this am: Hgb 15.6, K 3.9, BUN 28, Cr 0.8, TSH 0.65 , prealbumin 26.5. Code status: DNR. 10/05/17 Given persistent severe hypernatremia, will change status to inpatient. Continue to monitor serial sodium levels every 6 hours. Sodium does continue to slowly trend down. Continues to be on D5W at 60 ML per hour. Discussed with speech therapy. Recommends pured diet with syrup and nectar fluids and crushed medications. Encourage PO intake. Awaiting C/S of urine prior to initiation of antibiotic therapy, as this may be asymptomatic bacteruria. Patient does not appear to have any acute symptoms and does not appear septic at this time. We will continue to follow routine labs, and monitor for fever. At this time Urine culture reveals no growth. 10/06/17 Sodium continues to trend down slowly, today at 151. Potassium remains normal In culture did grow positive for Escherichia coli. Patient started on IV Rocephin for antimicrobial coverage. White count was noted to be elevated at 14.9 this morning. He remains afebrile Continue to encourage oral intake- pureed with thickened liquids 10/07/17 Sodium continues to Improve- NA today 148. Continues on D5W IV fluids; with decreased potassium, will change to D5W with 20mEq KCl at 75cc/hr. Continues on IV Rocephin for antimicrobial coverage. Hypokalemia potassium 3.2 today. Will given one time PO dose of potassium supplementation Pureed with thickened liquids. 10/08/17 WBC increased to 17.3 despite ceftriaxone-sensitive E. coli UTI. Will check CXR because of aspiration history. Consider dental etiology; will start clindamycin. Gross exam does not correlate with a deep space inspection since he is able to open his mouth to eat and swallow without difficulty, but we have not been successful in inspecting his oral cavity. This would require sedation. We do know that he had a recent dental infection and is due to have all his teeth pulled out. Sodium decreased to 145. Oral intake still poor; continue IVF. Hypokalemia has been corrected. CXR not showing infiltrate. Increased bowel gas noted. Nursing to give fleets to help motivated bowel gas. 10/09/17 WBC continues to trend up (WBC 21.8) with 2% bandemia. Patient remains afebrile. Continue treatment of E.coli UTI with Rocephin (day 3). Continue clindamycin for possible dental infection (day 1). Gross exam does not correlate with a deep space inspection since he is able to open his mouth to eat and swallow without difficulty, but we have not been successful in inspecting his oral cavity. This would require sedation. We do know that he had a recent dental infection and is due to have all his teeth pulled out. Schedule acetaminophen 650mg QID to help pain. CXR revealed bibasilar atelectasis. Continue to monitor respiratory function closely. Sodium stable at 145. Oral intake poor. Continue D5w with KCl at 60cc/hr. Recheck labs in AM to monitor blood counts, electrolytes and renal function.
[2017-10-09] MEDS ORDERED: MAG-AL + SIM ORAL LIQUID 30ml PO PRN (16:15)
[2017-10-09] MEDS: ACETAMINOPHEN 325 MG TABLET PO SCH ×2 (17:36→20:11)
[2017-10-09] MEDS: SENNA + DOCUSATE TABLET PO SCH (20:11)
[2017-10-09] MEDS: BISACODYL 10 MG SUPPOSITORY RECTALLY SCH (20:12)
[2017-10-10] MEDS: POTASSIUM CHLORIDE INJ 20 MEQ in D5W 1,000 ML IV SCH ×3 (02:37→21:15)
[2017-10-10] MEDS: CLINDAMYCIN PB 600 MG/50 ML BAG IV SCH ×3 (06:18→18:46)
[2017-10-10] MEDS: GABAPENTIN 100 MG CAPSULE PO SCH ×2 (08:37→20:57)
[2017-10-10] MEDS: POLYETHYL GLYCOL 3350 17gm PACKET PO SCH (08:37)
[2017-10-10] MEDS: ACETAMINOPHEN 325 MG TABLET PO SCH ×5 (08:37→20:47)
--- NOTE | 2017-10-10 09:42 | Progress Note ---
- Date 10/10/17 Subjective: Fermin looks like he's in pain -- he's grimacing his face frequently and moaning. He moves his head when I touch either side of his jaw, but there is no obvious swelling. He is nonverbal and does not open his mouth. Objective Vital signs: Temperature 96.7 F L 10/10/17 07:27 Pulse Rate 88 10/10/17 07:27 Respiratory Rate 16 10/10/17 07:27 Blood Pressure 119/87 10/10/17 07:27 Pulse Oximetry 98 10/10/17 07:27 Rhythm: Normal Sinus Rhythm Height/Weight/BMI: Height 1.45 m Weight 47.8 kg Body Mass Index 20.9 - Constitutional Present: mild distress, thin - Routine HEENT Exam Eye: Absent: conjunctival icterus, scleral injection ENT: Absent: dentition normal - Routine Respiratory Exam Present: CTA bilaterally - Routine Cardiovascular Exam Present: RRR, S1, S2 - Routine Abdominal Exam Present: soft, normoactive bowel sounds, non distended, non tender - Routine Extremities Exam Present: no edema - Routine Musculoskeletal Exam Musculoskeletal: Present: contractures - Routine Skin Exam Present: intact, warm Comments: scratches/abrasions to both forearms - Routine Neurological Exam Present: alert - Routine Psychiatric Exam Present: unable to assess Results - Labs CBC & Chem 7: 10/10/17 04:00 10/10/17 04:00 Assessment and Plan (1) Hypernatremia Current visit: Yes Status: Acute Assessment and Plan: IMPRESSION Severe hypernatremia [163] POA - improving. UTI with E. coli - sensitive to Rocephin. Leukocytosis, POA Hypokalemia, not POA - resolved. Recent dental infection Dysphagia Post measles encephalitis Spastic quadriplegia Allergic rhinitis HX of MRSA abscesses Hx of aspiration pneumonia Hx of recurrent small bowel obstruction Hx of UTI (urinary tract infection) Dextroscoliosis Constipation Hx of fecal impaction of colon GERD (gastroesophageal reflux disease) PLAN - 10/10/17: WBC improved to 15.2. Continue Clinda (started 10/08) for suspected oral infection and Rocephin for E. coli UTI (started 10/06) Sodium improved to 145, but oral liquid intake is poor and meal intake is variable. His weight is decreasing. Do not feel his intake is adequate enough to safely stop IVF at this time. May need to have conversation with his sister regarding TPN if appetite does not improve. Previous attempt at PEG tube was unsuccessful. He appears to be in pain: he had previously been on scheduled Tramadol prior to admission; will resume Tramadol QID. Will discuss with attending. Resuscitation Status: Do Not Resuscitate - Time spent with patient Time with patient PN: 25 minutes - Physician Narrative Physician: Nitesh Gil MD Narrative: Date: 10/10/17 Time: 1145 Have independently interviewed and examined pt. Chart reviewed. Case discussed with CM and my COMMERCIAL LITIGATION ASSOCIATE. Care plan developed with my supervision; agree with above. Resting in bed-awake. Moving more in general. Oral drive still very diminished- resists being fed. Bowels moving. Sodium with decreased. WBC decreasing. Lungs: clear bilaterally-no distress on RA. CV: regular AB: soft nd, bd present. EXT: thin Plan: Continue with Rocephin and clindamycin. Routine tramadol added to acetaminophen to help pain. Encourage oral intake. Continue with IVF. Monitor lab. Hospital Course Summary Disclaimer: The visit summary below is not to be considered part of the above Progress Note. Hospital Course: 10/04/17 Admission - OBS status Admit to the hospitalist service, observation status. Recheck Na now and trend every 6 hours. Start D5W at 60 mL/hr with a goal sodium reduction of no more than 10 mEq/L over the next 24 hours. History of SBO: check abdominal film. UA indicative of UTI, minimally elevated wbc, however he is afebrile. He is incontinent of B/B. Send for culture and monitor symptoms for now. Consult speech therapy. Of note, PEG placement has been considered but EGD in 2014 revealed a gastric anatomy that was not conducive to PEG placement. Other pertinent labs checked this am: Hgb 15.6, K 3.9, BUN 28, Cr 0.8, TSH 0.65 , prealbumin 26.5. Code status: DNR. 10/05/17 Given persistent severe hypernatremia, will change status to inpatient. Continue to monitor serial sodium levels every 6 hours. Sodium does continue to slowly trend down. Continues to be on D5W at 60 ML per hour. Discussed with speech therapy. Recommends pured diet with syrup and nectar fluids and crushed medications. Encourage PO intake. Awaiting C/S of urine prior to initiation of antibiotic therapy, as this may be asymptomatic bacteruria. Patient does not appear to have any acute symptoms and does not appear septic at this time. We will continue to follow routine labs, and monitor for fever. At this time Urine culture reveals no growth. 10/06/17 Sodium continues to trend down slowly, today at 151. Potassium remains normal In culture did grow positive for Escherichia coli. Patient started on IV Rocephin for antimicrobial coverage. White count was noted to be elevated at 14.9 this morning. He remains afebrile Continue to encourage oral intake- pureed with thickened liquids 10/07/17 Sodium continues to Improve- NA today 148. Continues on D5W IV fluids; with decreased potassium, will change to D5W with 20mEq KCl at 75cc/hr. Continues on IV Rocephin for antimicrobial coverage. Hypokalemia potassium 3.2 today. Will given one time PO dose of potassium supplementation Pureed with thickened liquids. 10/08/17 WBC increased to 17.3 despite ceftriaxone-sensitive E. coli UTI. Will check CXR because of aspiration history. Consider dental etiology; will start clindamycin. Gross exam does not correlate with a deep space inspection since he is able to open his mouth to eat and swallow without difficulty, but we have not been successful in inspecting his oral cavity. This would require sedation. We do know that he had a recent dental infection and is due to have all his teeth pulled out. Sodium decreased to 145. Oral intake still poor; continue IVF. Hypokalemia has been corrected. CXR not showing infiltrate. Increased bowel gas noted. Nursing to give fleets to help motivated bowel gas. 10/09/17 WBC continues to trend up (WBC 21.8) with 2% bandemia. Patient remains afebrile. Continue treatment of E.coli UTI with Rocephin (day 3). Continue clindamycin for possible dental infection (day 1). Gross exam does not correlate with a deep space inspection since he is able to open his mouth to eat and swallow without difficulty, but we have not been successful in inspecting his oral cavity. This would require sedation. We do know that he had a recent dental infection and is due to have all his teeth pulled out. Schedule acetaminophen 650mg QID to help pain. CXR revealed bibasilar atelectasis. Continue to monitor respiratory function closely. Sodium stable at 145. Oral intake poor. Continue D5w with KCl at 60cc/hr. 10/10/17 WBC improved to 15.2. Continue Clinda (started 10/08) for suspected oral infection and Rocephin for E. coli UTI (started 10/06) Sodium improved to 145, but oral liquid intake is poor and meal intake is variable. His weight is decreasing. Do not feel his intake is adequate enough to safely stop IVF at this time. May need to have conversation with his sister regarding TPN if appetite does not improve. Previous attempt at PEG tube was unsuccessful. He appears to be in pain: he had previously been on scheduled Tramadol prior to admission; will resume Tramadol QID.
[2017-10-10] MEDS: CEFTRIAXONE 1 G in NS 50 ML IV SCH (09:52)
[2017-10-10] MEDS: [UNRECOGNIZED DRUG - OTHER] TOP SCH ×2 (10:47→21:09)
[2017-10-10] MEDS: VITAMINS A TOP SCH ×2 (10:47→21:09)
[2017-10-10] MEDS: TRAMADOL 50 MG TABLET PO SCH ×4 (15:22→20:48)
[2017-10-10] MEDS: SENNA + DOCUSATE TABLET PO SCH (20:48)
[2017-10-10] MEDS: BISACODYL 10 MG SUPPOSITORY RECTALLY SCH (20:56)
[2017-10-11] MEDS: CLINDAMYCIN PB 600 MG/50 ML BAG IV SCH ×4 (01:10→17:40)
[2017-10-11] MEDS: TRAMADOL 50 MG TABLET PO SCH ×4 (08:42→21:21)
[2017-10-11] MEDS: ACETAMINOPHEN 325 MG TABLET PO SCH ×4 (08:42→21:20)
[2017-10-11] MEDS: POLYETHYL GLYCOL 3350 17gm PACKET PO SCH (08:42)
[2017-10-11] MEDS: GABAPENTIN 100 MG CAPSULE PO SCH ×2 (08:43→21:23)
[2017-10-11] MEDS: VITAMINS A TOP SCH ×2 (08:52→21:21)
[2017-10-11] MEDS: [UNRECOGNIZED DRUG - OTHER] TOP SCH ×2 (08:52→21:21)
--- NOTE | 2017-10-11 09:39 | Progress Note ---
- Date 10/11/17 Subjective: Fermin seemed more alert today, and was moving his upper extremities more frequently. He was not moaning and grimacing as much as yesterday, however, with palpation of his jaw, he seemed to moan more frequently. He was nonverbal, as usual. Oral intake continues to be very poor. Objective Vital signs: Temperature 97.9 F 10/10/17 23:00 Pulse Rate 76 10/11/17 07:12 Respiratory Rate 16 10/11/17 07:12 Blood Pressure 99/58 10/11/17 07:12 Pulse Oximetry 100 10/11/17 07:12 Rhythm: Normal Sinus Rhythm Height/Weight/BMI: Height 1.45 m Weight 47.8 kg Body Mass Index 20.9 - Constitutional Present: thin - Routine HEENT Exam Comments: unable to visualize oral cavity occasionally inserts finger into mouth subtle swelling of right mandible. No cervical lymphadenopathy - Routine Respiratory Exam Present: CTA bilaterally - Routine Cardiovascular Exam Present: RRR, S1, S2 - Routine Abdominal Exam Present: soft, normoactive bowel sounds, non distended, non tender - Routine Extremities Exam Present: no edema, pulses intact Comments: scratches/superficial abrasions to arms/chest - Routine Musculoskeletal Exam Musculoskeletal: Present: contractures (fractures) - Routine Skin Exam Present: dry, warm - Routine Neurological Exam Present: alert (at baseline) - Routine Lymphatic Exam Lymphatic: Absent: adenopathy - Routine Psychiatric Exam Present: unable to assess Results - Labs CBC & Chem 7: 10/11/17 03:51 10/11/17 03:51 Assessment and Plan (1) Hypernatremia Current visit: Yes Status: Acute Assessment and Plan: IMPRESSION Severe hypernatremia [163] POA - improving. UTI with E. coli - sensitive to Rocephin. Leukocytosis, POA Hypokalemia, not POA - resolved. Recent dental infection Dysphagia Post measles encephalitis Spastic quadriplegia Allergic rhinitis HX of MRSA abscesses Hx of aspiration pneumonia Hx of recurrent small bowel obstruction Hx of UTI (urinary tract infection) Dextroscoliosis Constipation Hx of fecal impaction of colon GERD (gastroesophageal reflux disease) PLAN - 10/11/17: White count continues to decrease, currently at 12.6. Continue clindamycin, which was started on 10/08/17 for suspected oral infection and Rocephin for Escherichia coli UTI, which was started on 10/02/41. Sodium improved to 144. Oral intake is still poor, howharitha, he has a history of poor oral intake. Will discontinue IV fluids and reassess after breakfast and lunch. Continue tramadol and Tylenol for pain. Discussed with Dr. Gil and RN. DVT Prophylaxis: SCD's Resuscitation Status: Do Not Resuscitate - Time spent with patient Time with patient PN: 25 minutes - Physician Narrative Physician: Nitesh Gil MD Narrative: Date: 10/11/17 Time: 1108 Have independently interviewed and examined pt. Chart reviewed. Case discussed with CM and my OVERHEAD DISTRIBUTION ENGINEER. Care plan developed with my supervision; agree with above. Resting in bed, awakens easily to verbal stimuli. Non verbal, does move left arm. Points to mouth. Looks less uncomfortable and restless than yesterday. Lungs: Clear CV: regular EXT: thin Plan: Continue with antibiotics. May stop IVF-monitor hydration status. Encourage oral intake-hope with routine pain medications pt will be able to eat more. Hospital Course Summary Disclaimer: The visit summary below is not to be considered part of the above Progress Note. Hospital Course: 10/04/17 Admission - OBS status Admit to the hospitalist service, observation status. Recheck Na now and trend every 6 hours. Start D5W at 60 mL/hr with a goal sodium reduction of no more than 10 mEq/L over the next 24 hours. History of SBO: check abdominal film. UA indicative of UTI, minimally elevated wbc, however he is afebrile. He is incontinent of B/B. Send for culture and monitor symptoms for now. Consult speech therapy. Of note, PEG placement has been considered but EGD in 2014 revealed a gastric anatomy that was not conducive to PEG placement. Other pertinent labs checked this am: Hgb 15.6, K 3.9, BUN 28, Cr 0.8, TSH 0.65 , prealbumin 26.5. Code status: DNR. 10/05/17 Given persistent severe hypernatremia, will change status to inpatient. Continue to monitor serial sodium levels every 6 hours. Sodium does continue to slowly trend down. Continues to be on D5W at 60 ML per hour. Discussed with speech therapy. Recommends pured diet with syrup and nectar fluids and crushed medications. Encourage PO intake. Awaiting C/S of urine prior to initiation of antibiotic therapy, as this may be asymptomatic bacteruria. Patient does not appear to have any acute symptoms and does not appear septic at this time. We will continue to follow routine labs, and monitor for fever. At this time Urine culture reveals no growth. 10/06/17 Sodium continues to trend down slowly, today at 151. Potassium remains normal In culture did grow positive for Escherichia coli. Patient started on IV Rocephin for antimicrobial coverage. White count was noted to be elevated at 14.9 this morning. He remains afebrile Continue to encourage oral intake- pureed with thickened liquids 10/07/17 Sodium continues to Improve- NA today 148. Continues on D5W IV fluids; with decreased potassium, will change to D5W with 20mEq KCl at 75cc/hr. Continues on IV Rocephin for antimicrobial coverage. Hypokalemia potassium 3.2 today. Will given one time PO dose of potassium supplementation Pureed with thickened liquids. 10/08/17 WBC increased to 17.3 despite ceftriaxone-sensitive E. coli UTI. Will check CXR because of aspiration history. Consider dental etiology; will start clindamycin. Gross exam does not correlate with a deep space inspection since he is able to open his mouth to eat and swallow without difficulty, but we have not been successful in inspecting his oral cavity. This would require sedation. We do know that he had a recent dental infection and is due to have all his teeth pulled out. Sodium decreased to 145. Oral intake still poor; continue IVF. Hypokalemia has been corrected. CXR not showing infiltrate. Increased bowel gas noted. Nursing to give fleets to help motivated bowel gas. 10/09/17 WBC continues to trend up (WBC 21.8) with 2% bandemia. Patient remains afebrile. Continue treatment of E.coli UTI with Rocephin (day 3). Continue clindamycin for possible dental infection (day 1). Gross exam does not correlate with a deep space inspection since he is able to open his mouth to eat and swallow without difficulty, but we have not been successful in inspecting his oral cavity. This would require sedation. We do know that he had a recent dental infection and is due to have all his teeth pulled out. Schedule acetaminophen 650mg QID to help pain. CXR revealed bibasilar atelectasis. Continue to monitor respiratory function closely. Sodium stable at 145. Oral intake poor. Continue D5w with KCl at 60cc/hr. 10/10/17 WBC improved to 15.2. Continue Clinda (started 10/08) for suspected oral infection and Rocephin for E. coli UTI (started 10/06) Sodium improved to 145, but oral liquid intake is poor and meal intake is variable. His weight is decreasing. Do not feel his intake is adequate enough to safely stop IVF at this time. May need to have conversation with his sister regarding TPN if appetite does not improve. Previous attempt at PEG tube was unsuccessful. He appears to be in pain: he had previously been on scheduled Tramadol prior to admission; will resume Tramadol QID. 10/11/17 White count continues to decrease, currently at 12.6. Continue clindamycin, which was started on 10/08/17 for suspected oral infection and Rocephin for Escherichia coli UTI, which was started on 10/02/41. Sodium improved to 144. Oral intake is still poor, howeve, he has a history of poor oral intake. Will discontinue IV fluids and reassess after breakfast and lunch. Continue tramadol and Tylenol for pain.
[2017-10-11] MEDS: CEFTRIAXONE 1 G in NS 50 ML IV SCH (11:58)
[2017-10-11] MEDS: BISACODYL 10 MG SUPPOSITORY RECTALLY SCH (21:20)
[2017-10-11] MEDS: SENNA + DOCUSATE TABLET PO SCH (21:21)
[2017-10-12] MEDS: CLINDAMYCIN PB 600 MG/50 ML BAG IV SCH ×4 (00:51→21:15)
[2017-10-12] MEDS: SALINE FLUSH 10ml SYRINGE IVF PRN ×2 (00:52→06:09)
[2017-10-12] MEDS: POLYETHYL GLYCOL 3350 17gm PACKET PO SCH (08:48)
[2017-10-12] MEDS: TRAMADOL 50 MG TABLET PO SCH ×4 (08:48→22:10)
[2017-10-12] MEDS: VITAMINS A TOP SCH ×2 (08:48→22:10)
[2017-10-12] MEDS: [UNRECOGNIZED DRUG - OTHER] TOP SCH ×2 (08:48→22:10)
[2017-10-12] MEDS: ACETAMINOPHEN 325 MG TABLET PO SCH ×4 (08:48→22:09)
[2017-10-12] MEDS: GABAPENTIN 100 MG CAPSULE PO SCH ×2 (08:49→22:10)
--- NOTE | 2017-10-12 09:12 | Progress Note ---
- Date 10/12/17 Subjective: Fermin was resting but easily awakened. He occasionally made eye contact. He grimaced and moaned a few times. His nurse reports that compared to Sunday, the only oral intake she's been able to get him to take is when he takes his pills. He refuses anything else. Objective Vital signs: Temperature 98.0 F 10/12/17 07:38 Pulse Rate 79 10/12/17 07:38 Respiratory Rate 16 10/12/17 07:37 Blood Pressure 91/57 10/12/17 07:38 Pulse Oximetry 99 10/12/17 07:37 Rhythm: Normal Sinus Rhythm Height/Weight/BMI: Height 1.45 m Weight 49.3 kg Body Mass Index 20.9 - Constitutional Present: mild distress, thin - Routine HEENT Exam Eye: Absent: conjunctival icterus, scleral injection ENT: Present: dentition normal (unable to see clearly but he grinds his teeth and the visible front teeth are not in good health) - Routine Respiratory Exam Present: CTA bilaterally - Routine Cardiovascular Exam Present: RRR, S1, S2 - Routine Abdominal Exam Present: soft, normoactive bowel sounds, non distended, non tender - Routine Extremities Exam Present: no edema, pulses intact - Routine Musculoskeletal Exam Musculoskeletal: Present: contractures - Routine Skin Exam Present: intact, dry, warm, wounds (abrasions/scratches to both arms/chest) - Routine Neurological Exam Present: alert (baseline) - Routine Psychiatric Exam Present: unable to assess Results - Labs CBC & Chem 7: 10/12/17 03:54 10/12/17 03:54 Assessment and Plan (1) Hypernatremia Current visit: Yes Status: Acute Assessment and Plan: IMPRESSION Severe hypernatremia [163] POA - resolved. UTI with E. coli - sensitive to Rocephin. Leukocytosis, POA Hypokalemia, not POA - resolved. Recent dental infection Dysphagia Post measles encephalitis Spastic quadriplegia Allergic rhinitis HX of MRSA abscesses Hx of aspiration pneumonia Hx of recurrent small bowel obstruction Hx of UTI (urinary tract infection) Dextroscoliosis Constipation Hx of fecal impaction of colon GERD (gastroesophageal reflux disease) PLAN - 10/12/17: WBC increased to 14.1. Continue clindamycin, which was started on 10/08/17 for suspected oral infection; Rocephin for Escherichia coli UTI, which was started on 10/06/41. While Na improved to 143, he is not taking in enough oral liquids or nutrition to sustain life. At this point, will restart IVF (D5 1/2NS @ 60 mL/hr) but we will need to have a conversation regarding goals of care with the patient's sister/DPOA. TPN/PPN is a consideration; previously an attempt at PEG tube placement was unsuccessful due to abnormal anatomy. Continue tramadol and Tylenol for pain. Discussed with RN. 10/12/2017-3:36 PM-I reviewed this chart, the patient history, and the BIOLOGIST AIDE's/PA 's documented findings as above. We discussed and formulated the assessment and plan as above with the additions below.-Dr. Avitia The patient was seen in his room accompanied by his nurse. His nurse states that he was eating well for her 5 days ago, but will barely eat anything for her today. He is also not drinking well. I called and talked with his sister, and she is concerned that staff is not familiar with how best to feed him and his preferences on foods. I did talk with his nurse and asked her to call the patient's sister to discuss his preferences with her. The patient's sister also states that they have been concerned about possible dental infection. She is agreeable to a CT maxillofacial study today to look for significant dental abnormalities. He currently has his fingers in his mouth and his sister states that is normal for him" a good sign". It is also normal for him to grind his teeth. His IV fluids were discontinued yesterday and his oral intake was poor since that time. Urine output had decreased. IV fluids were restarted this morning and he has had a wet diaper since that time. On exam he is alert and awake. Oral mucosa is moist and he has his fingers in his mouth. He will not allow me to examine his mouth. Chest is clear to auscultation. Cardiovascular reveals a regular rate and rhythm. Abdomen is soft and nontender. Extremities are contracted but free of edema. Lab reveals white count of 14.1 with 2% bands, 51% neutrophils, 21% leukocytes and 25% monocytes Basic metabolic file is essentially normal. Impression/plan Continued poor by mouth intake. Will try frequent small meals and ask nursing staff to discuss patient's favorites with his sister. May need to consider PPN or other options if not taking oral well. Possible recent dental infection-we'll check CT maxillofacial today. Currently on clindamycin for possible dental infection. UTI with Escherichia coli -on day 7 of Rocephin. Will stop after today's dose. DVT Prophylaxis: SCD's GI Prophylaxis: Protonix Resuscitation Status: Do Not Resuscitate - Time spent with patient Time with patient PN: 35 minutes - Physician Narrative Physician: Petra Avitia MD Narrative: Date: 10/12/17 Time: 906 Hospital Course Summary Disclaimer: The visit summary below is not to be considered part of the above Progress Note. Hospital Course: 10/04/17 Admission - OBS status Admit to the hospitalist service, observation status. Recheck Na now and trend every 6 hours. Start D5W at 60 mL/hr with a goal sodium reduction of no more than 10 mEq/L over the next 24 hours. History of SBO: check abdominal film. UA indicative of UTI, minimally elevated wbc, however he is afebrile. He is incontinent of B/B. Send for culture and monitor symptoms for now. Consult speech therapy. Of note, PEG placement has been considered but EGD in 2014 revealed a gastric anatomy that was not conducive to PEG placement. Other pertinent labs checked this am: Hgb 15.6, K 3.9, BUN 28, Cr 0.8, TSH 0.65 , prealbumin 26.5. Code status: DNR. 10/05/17 Given persistent severe hypernatremia, will change status to inpatient. Continue to monitor serial sodium levels every 6 hours. Sodium does continue to slowly trend down. Continues to be on D5W at 60 ML per hour. Discussed with speech therapy. Recommends pured diet with syrup and nectar fluids and crushed medications. Encourage PO intake. Awaiting C/S of urine prior to initiation of antibiotic therapy, as this may be asymptomatic bacteruria. Patient does not appear to have any acute symptoms and does not appear septic at this time. We will continue to follow routine labs, and monitor for fever. At this time Urine culture reveals no growth. 10/06/17 Sodium continues to trend down slowly, today at 151. Potassium remains normal In culture did grow positive for Escherichia coli. Patient started on IV Rocephin for antimicrobial coverage. White count was noted to be elevated at 14.9 this morning. He remains afebrile Continue to encourage oral intake- pureed with thickened liquids 10/07/17 Sodium continues to Improve- NA today 148. Continues on D5W IV fluids; with decreased potassium, will change to D5W with 20mEq KCl at 75cc/hr. Continues on IV Rocephin for antimicrobial coverage. Hypokalemia potassium 3.2 today. Will given one time PO dose of potassium supplementation Pureed with thickened liquids. 10/08/17 WBC increased to 17.3 despite ceftriaxone-sensitive E. coli UTI. Will check CXR because of aspiration history. Consider dental etiology; will start clindamycin. Gross exam does not correlate with a deep space inspection since he is able to open his mouth to eat and swallow without difficulty, but we have not been successful in inspecting his oral cavity. This would require sedation. We do know that he had a recent dental infection and is due to have all his teeth pulled out. Sodium decreased to 145. Oral intake still poor; continue IVF. Hypokalemia has been corrected. CXR not showing infiltrate. Increased bowel gas noted. Nursing to give fleets to help motivated bowel gas. 10/09/17 WBC continues to trend up (WBC 21.8) with 2% bandemia. Patient remains afebrile. Continue treatment of E.coli UTI with Rocephin (day 3). Continue clindamycin for possible dental infection (day 1). Gross exam does not correlate with a deep space inspection since he is able to open his mouth to eat and swallow without difficulty, but we have not been successful in inspecting his oral cavity. This would require sedation. We do know that he had a recent dental infection and is due to have all his teeth pulled out. Schedule acetaminophen 650mg QID to help pain. CXR revealed bibasilar atelectasis. Continue to monitor respiratory function closely. Sodium stable at 145. Oral intake poor. Continue D5w with KCl at 60cc/hr. 10/10/17 WBC improved to 15.2. Continue Clinda (started 10/08) for suspected oral infection and Rocephin for E. coli UTI (started 10/06) Sodium improved to 145, but oral liquid intake is poor and meal intake is variable. His weight is decreasing. Do not feel his intake is adequate enough to safely stop IVF at this time. May need to have conversation with his sister regarding TPN if appetite does not improve. Previous attempt at PEG tube was unsuccessful. He appears to be in pain: he had previously been on scheduled Tramadol prior to admission; will resume Tramadol QID. 10/11/17 White count continues to decrease, currently at 12.6. Continue clindamycin, which was started on 10/08/17 for suspected oral infection and Rocephin for Escherichia coli UTI, which was started on 10/02/41. Sodium improved to 144. Oral intake is still poor, howeve, he has a history of poor oral intake. Will discontinue IV fluids and reassess after breakfast and lunch. Continue tramadol and Tylenol for pain. 10/12/17 WBC increased to 14.1. Continue clindamycin for suspected oral infection; Rocephin for Escherichia coli UTI While Na improved to 143, he is not taking in enough oral liquids or nutrition to sustain life. At this point, will restart IVF (D5 1/2NS @ 60 mL/hr) but we will need to have a conversation regarding goals of care with the patient's sister/DPOA. TPN/PPN is a consideration; previously an attempt at PEG tube placement was unsuccessful due to abnormal anatomy.
[2017-10-12] MEDS: D5-1/2NS 1,000 ML IV SCH (09:53)
[2017-10-12] MEDS: CEFTRIAXONE 1 G in NS 50 ML IV SCH (09:58)
[2017-10-12] MEDS: SENNA + DOCUSATE TABLET PO SCH (22:09)
[2017-10-12] MEDS: BISACODYL 10 MG SUPPOSITORY RECTALLY SCH (22:09)
[2017-10-13] MEDS: CLINDAMYCIN PB 600 MG/50 ML BAG IV SCH ×4 (01:48→19:18)
[2017-10-13] MEDS: D5-1/2NS 1,000 ML IV SCH ×2 (05:35→16:44)
[2017-10-13] MEDS: POLYETHYL GLYCOL 3350 17gm PACKET PO SCH (08:06)
[2017-10-13] MEDS: ACETAMINOPHEN 325 MG TABLET PO SCH ×4 (08:06→22:08)
[2017-10-13] MEDS: TRAMADOL 50 MG TABLET PO SCH ×4 (08:06→22:08)
[2017-10-13] MEDS: GABAPENTIN 100 MG CAPSULE PO SCH ×2 (08:06→22:10)
[2017-10-13] MEDS: VITAMINS A TOP SCH ×2 (08:07→22:09)
[2017-10-13] MEDS: [UNRECOGNIZED DRUG - OTHER] TOP SCH ×2 (08:07→22:09)
--- NOTE | 2017-10-13 16:15 | Progress Note ---
- Date 10/13/17 Subjective: The patient was seen this afternoon in his room. His nurse reports that he is eating great today. He has had a combination mighty shake and Magic cup 4 times today. This is a total of 8 supplements. When I went in the room he is awake and appears in no distress. He is nonverbal and not able to answer any questions for me. Objective Vital signs: Temperature 97.6 F 10/13/17 15:24 Pulse Rate 88 10/13/17 15:24 Respiratory Rate 16 10/13/17 15:24 Blood Pressure 118/68 10/13/17 15:24 Pulse Oximetry 99 10/13/17 15:24 Rhythm: Normal Sinus Rhythm Height/Weight/BMI: Height 1.45 m Weight 48.8 kg Body Mass Index 20.9 Comments: GEN-patient is awake, alert and in no distress HEENT-sclera anicteric, oropharynx is moist, the patient has his fingers in his mouth (his sister has previously stated this is normal) NECK-no adenopathy CV-regular rate and rhythm CHEST-clear to auscultation bilaterally anteriorly ABD-soft, nontender with positive bowel sounds -no Barber EXT-no edema NEURO-significant for contractures in all 4 extremities SKIN-no rashes Results - Labs CBC & Chem 7: 10/13/17 04:07 10/13/17 04:07 Labs: Pre-albumin is low at 16.3. Andrew screen is negative. Assessment and Plan (1) Hypernatremia Current visit: Yes Status: Acute Assessment and Plan: IMPRESSION Severe hypernatremia [163] POA - resolved. UTI with E. coli - nourished seven-day course of Rocephin on 10/12/2017 Leukocytosis, POA Increased monocyte count-mono screen is negative Hypokalemia, not POA - resolved. Recent dental infection Dysphagia Post measles encephalitis Spastic quadriplegia Allergic rhinitis HX of MRSA abscesses Hx of aspiration pneumonia Hx of recurrent small bowel obstruction Hx of UTI (urinary tract infection) Dextroscoliosis Constipation Hx of fecal impaction of colon GERD (gastroesophageal reflux disease) Concerns for dental infection recently-maxillofacial CT obtained 10/12/2017, results are pending Poor by mouth intake Malnutrition with low prealbumin PLAN - 10/12/17: The patient's oral intake is markedly better today. He has had for mighty shakes and for Magic cups so far. The patient had an increased monocyte percent for the past several days, mono screen is negative. He is afebrile. He continues on clindamycin for possible dental infection. CT maxillofacial study is pending. The patient will be given a suppository today due to no bowel movement for the past few days and history of fecal impactions. Continue supportive care. Check CBC and basic metabolic profile tomorrow. Decrease IV fluid rate to 40 ML's per hour now that he is eating and drinking better. His chest with the patient's nurse. I did call his sister and left a message on her voicemail to update her on her brother's progress. - Physician Narrative Narrative: Date: 10/13/17 Time: 1600 Hospital Course Summary Disclaimer: The visit summary below is not to be considered part of the above Progress Note. Hospital Course: 10/04/17 Admission - OBS status Admit to the hospitalist service, observation status. Recheck Na now and trend every 6 hours. Start D5W at 60 mL/hr with a goal sodium reduction of no more than 10 mEq/L over the next 24 hours. History of SBO: check abdominal film. UA indicative of UTI, minimally elevated wbc, however he is afebrile. He is incontinent of B/B. Send for culture and monitor symptoms for now. Consult speech therapy. Of note, PEG placement has been considered but EGD in 2014 revealed a gastric anatomy that was not conducive to PEG placement. Other pertinent labs checked this am: Hgb 15.6, K 3.9, BUN 28, Cr 0.8, TSH 0.65 , prealbumin 26.5. Code status: DNR. 10/05/17 Given persistent severe hypernatremia, will change status to inpatient. Continue to monitor serial sodium levels every 6 hours. Sodium does continue to slowly trend down. Continues to be on D5W at 60 ML per hour. Discussed with speech therapy. Recommends pured diet with syrup and nectar fluids and crushed medications. Encourage PO intake. Awaiting C/S of urine prior to initiation of antibiotic therapy, as this may be asymptomatic bacteruria. Patient does not appear to have any acute symptoms and does not appear septic at this time. We will continue to follow routine labs, and monitor for fever. At this time Urine culture reveals no growth. 10/06/17 Sodium continues to trend down slowly, today at 151. Potassium remains normal In culture did grow positive for Escherichia coli. Patient started on IV Rocephin for antimicrobial coverage. White count was noted to be elevated at 14.9 this morning. He remains afebrile Continue to encourage oral intake- pureed with thickened liquids 10/07/17 Sodium continues to Improve- NA today 148. Continues on D5W IV fluids; with decreased potassium, will change to D5W with 20mEq KCl at 75cc/hr. Continues on IV Rocephin for antimicrobial coverage. Hypokalemia potassium 3.2 today. Will given one time PO dose of potassium supplementation Pureed with thickened liquids. 10/08/17 WBC increased to 17.3 despite ceftriaxone-sensitive E. coli UTI. Will check CXR because of aspiration history. Consider dental etiology; will start clindamycin. Gross exam does not correlate with a deep space inspection since he is able to open his mouth to eat and swallow without difficulty, but we have not been successful in inspecting his oral cavity. This would require sedation. We do know that he had a recent dental infection and is due to have all his teeth pulled out. Sodium decreased to 145. Oral intake still poor; continue IVF. Hypokalemia has been corrected. CXR not showing infiltrate. Increased bowel gas noted. Nursing to give fleets to help motivated bowel gas. 10/09/17 WBC continues to trend up (WBC 21.8) with 2% bandemia. Patient remains afebrile. Continue treatment of E.coli UTI with Rocephin (day 3). Continue clindamycin for possible dental infection (day 1). Gross exam does not correlate with a deep space inspection since he is able to open his mouth to eat and swallow without difficulty, but we have not been successful in inspecting his oral cavity. This would require sedation. We do know that he had a recent dental infection and is due to have all his teeth pulled out. Schedule acetaminophen 650mg QID to help pain. CXR revealed bibasilar atelectasis. Continue to monitor respiratory function closely. Sodium stable at 145. Oral intake poor. Continue D5w with KCl at 60cc/hr. 10/10/17 WBC improved to 15.2. Continue Clinda (started 10/08) for suspected oral infection and Rocephin for E. coli UTI (started 10/06) Sodium improved to 145, but oral liquid intake is poor and meal intake is variable. His weight is decreasing. Do not feel his intake is adequate enough to safely stop IVF at this time. May need to have conversation with his sister regarding TPN if appetite does not improve. Previous attempt at PEG tube was unsuccessful. He appears to be in pain: he had previously been on scheduled Tramadol prior to admission; will resume Tramadol QID. 10/11/17 White count continues to decrease, currently at 12.6. Continue clindamycin, which was started on 10/08/17 for suspected oral infection and Rocephin for Escherichia coli UTI, which was started on 10/02/41. Sodium improved to 144. Oral intake is still poor, howeve, he has a history of poor oral intake. Will discontinue IV fluids and reassess after breakfast and lunch. Continue tramadol and Tylenol for pain. 10/12/17 WBC increased to 14.1. Continue clindamycin for suspected oral infection; Rocephin for Escherichia coli UTI While Na improved to 143, he is not taking in enough oral liquids or nutrition to sustain life. At this point, will restart IVF (D5 1/2NS @ 60 mL/hr) but we will need to have a conversation regarding goals of care with the patient's sister/DPOA. TPN/PPN is a consideration; previously an attempt at PEG tube placement was unsuccessful due to abnormal anatomy.
[2017-10-13] MEDS: BISACODYL 10 MG SUPPOSITORY RECTALLY SCH ×3 (16:59→22:32)
[2017-10-13] MEDS: SENNA + DOCUSATE TABLET PO SCH (22:08)
[2017-10-14] MEDS: CLINDAMYCIN PB 600 MG/50 ML BAG IV SCH ×4 (00:26→18:08)
[2017-10-14] MEDS: D5-1/2NS 1,000 ML IV SCH ×2 (05:13→12:27)
[2017-10-14] MEDS: POLYETHYL GLYCOL 3350 17gm PACKET PO SCH (09:28)
[2017-10-14] MEDS: TRAMADOL 50 MG TABLET PO SCH ×4 (09:28→22:04)
[2017-10-14] MEDS: ACETAMINOPHEN 325 MG TABLET PO SCH ×4 (09:28→22:03)
[2017-10-14] MEDS: VITAMINS A TOP SCH ×2 (09:29→22:04)
[2017-10-14] MEDS: [UNRECOGNIZED DRUG - OTHER] TOP SCH ×2 (09:29→22:04)
[2017-10-14] MEDS: GABAPENTIN 100 MG CAPSULE PO SCH ×2 (09:29→22:04)
--- NOTE | 2017-10-14 12:07 | Progress Note ---
- Date 10/14/17 Subjective: The patient was seen this morning in his room. He is chronically nonverbal. He is awake and watching TV. His nurse states that this morning he had to mighty shakes, chocolate and sugar, and sherbet. He did have a bowel movement yesterday. Objective Vital signs: Temperature 97.9 F 10/14/17 08:10 Pulse Rate 80 10/14/17 08:00 Respiratory Rate 16 10/14/17 08:00 Blood Pressure 120/77 10/14/17 08:00 Pulse Oximetry 100 10/14/17 08:00 Rhythm: Normal Sinus Rhythm Height/Weight/BMI: Height 1.45 m Weight 50.5 kg Body Mass Index 20.9 Comments: GEN-alert, no acute distress HEENT-oropharynx is moist, sclerae anicteric CV-regular rate and rhythm CHEST-clear to auscultation bilaterally ABD-soft, nontender, positive bowel sounds -no Barber EXT-edema NEURO-spastic quadriplegia SKIN-warm and dry Results - Labs CBC & Chem 7: 10/13/17 04:07 10/14/17 09:26 Assessment and Plan (1) Hypernatremia Current visit: Yes Status: Acute Assessment and Plan: IMPRESSION Severe hypernatremia [163] POA - resolved. UTI with E. coli -finished seven-day course of Rocephin on 10/12/2017 Leukocytosis, POA Increased monocyte count-mono screen is negative Hypokalemia, not POA - resolved. Recent dental infection Dysphagia Post measles encephalitis Spastic quadriplegia Allergic rhinitis HX of MRSA abscesses Hx of aspiration pneumonia Hx of recurrent small bowel obstruction Hx of UTI (urinary tract infection) Dextroscoliosis Constipation -bowel movement on 10/13/2017 Hx of fecal impaction of colon GERD (gastroesophageal reflux disease) Concerns for dental infection recently-maxillofacial CT obtained 10/12/2017, results are pending Poor by mouth intake-improved Malnutrition with low prealbumin PLAN - 10/12/17: The patient has been eating and drinking well the past 2 days. We'll discontinue IV fluids. We'll likely obtain results of maxillofacial CT tomorrow. Possible discharge soon back to his [facility] if he continues to eat and drink well. Continue clindamycin for now for possible dental infection. Basic metabolic profile tomorrow. The patient did have a bowel movement yesterday (unknown size or amount). We'll give a Dulcolax suppository again today. He has history of constipation and fecal impaction. Pt's sister/DPOAMeghana was called and updated on pt status. DVT Prophylaxis: SCD's Resuscitation Status: Do Not Resuscitate - Physician Narrative Narrative: Date: 10/14/17 Time: 1158 Hospital Course Summary Disclaimer: The visit summary below is not to be considered part of the above Progress Note. Hospital Course: 10/04/17 Admission - OBS status Admit to the hospitalist service, observation status. Recheck Na now and trend every 6 hours. Start D5W at 60 mL/hr with a goal sodium reduction of no more than 10 mEq/L over the next 24 hours. History of SBO: check abdominal film. UA indicative of UTI, minimally elevated wbc, however he is afebrile. He is incontinent of B/B. Send for culture and monitor symptoms for now. Consult speech therapy. Of note, PEG placement has been considered but EGD in 2014 revealed a gastric anatomy that was not conducive to PEG placement. Other pertinent labs checked this am: Hgb 15.6, K 3.9, BUN 28, Cr 0.8, TSH 0.65 , prealbumin 26.5. Code status: DNR. 10/05/17 Given persistent severe hypernatremia, will change status to inpatient. Continue to monitor serial sodium levels every 6 hours. Sodium does continue to slowly trend down. Continues to be on D5W at 60 ML per hour. Discussed with speech therapy. Recommends pured diet with syrup and nectar fluids and crushed medications. Encourage PO intake. Awaiting C/S of urine prior to initiation of antibiotic therapy, as this may be asymptomatic bacteruria. Patient does not appear to have any acute symptoms and does not appear septic at this time. We will continue to follow routine labs, and monitor for fever. At this time Urine culture reveals no growth. 10/06/17 Sodium continues to trend down slowly, today at 151. Potassium remains normal In culture did grow positive for Escherichia coli. Patient started on IV Rocephin for antimicrobial coverage. White count was noted to be elevated at 14.9 this morning. He remains afebrile Continue to encourage oral intake- pureed with thickened liquids 10/07/17 Sodium continues to Improve- NA today 148. Continues on D5W IV fluids; with decreased potassium, will change to D5W with 20mEq KCl at 75cc/hr. Continues on IV Rocephin for antimicrobial coverage. Hypokalemia potassium 3.2 today. Will given one time PO dose of potassium supplementation Pureed with thickened liquids. 10/08/17 WBC increased to 17.3 despite ceftriaxone-sensitive E. coli UTI. Will check CXR because of aspiration history. Consider dental etiology; will start clindamycin. Gross exam does not correlate with a deep space inspection since he is able to open his mouth to eat and swallow without difficulty, but we have not been successful in inspecting his oral cavity. This would require sedation. We do know that he had a recent dental infection and is due to have all his teeth pulled out. Sodium decreased to 145. Oral intake still poor; continue IVF. Hypokalemia has been corrected. CXR not showing infiltrate. Increased bowel gas noted. Nursing to give fleets to help motivated bowel gas. 10/09/17 WBC continues to trend up (WBC 21.8) with 2% bandemia. Patient remains afebrile. Continue treatment of E.coli UTI with Rocephin (day 3). Continue clindamycin for possible dental infection (day 1). Gross exam does not correlate with a deep space inspection since he is able to open his mouth to eat and swallow without difficulty, but we have not been successful in inspecting his oral cavity. This would require sedation. We do know that he had a recent dental infection and is due to have all his teeth pulled out. Schedule acetaminophen 650mg QID to help pain. CXR revealed bibasilar atelectasis. Continue to monitor respiratory function closely. Sodium stable at 145. Oral intake poor. Continue D5w with KCl at 60cc/hr. 10/10/17 WBC improved to 15.2. Continue Clinda (started 10/08) for suspected oral infection and Rocephin for E. coli UTI (started 10/06) Sodium improved to 145, but oral liquid intake is poor and meal intake is variable. His weight is decreasing. Do not feel his intake is adequate enough to safely stop IVF at this time. May need to have conversation with his sister regarding TPN if appetite does not improve. Previous attempt at PEG tube was unsuccessful. He appears to be in pain: he had previously been on scheduled Tramadol prior to admission; will resume Tramadol QID. 10/11/17 White count continues to decrease, currently at 12.6. Continue clindamycin, which was started on 10/08/17 for suspected oral infection and Rocephin for Escherichia coli UTI, which was started on 10/02/41. Sodium improved to 144. Oral intake is still poor, howeve, he has a history of poor oral intake. Will discontinue IV fluids and reassess after breakfast and lunch. Continue tramadol and Tylenol for pain. 10/12/17 WBC increased to 14.1. Continue clindamycin for suspected oral infection; Rocephin for Escherichia coli UTI While Na improved to 143, he is not taking in enough oral liquids or nutrition to sustain life. At this point, will restart IVF (D5 1/2NS @ 60 mL/hr) but we will need to have a conversation regarding goals of care with the patient's sister/DPOA. TPN/PPN is a consideration; previously an attempt at PEG tube placement was unsuccessful due to abnormal anatomy.
[2017-10-14] MEDS: BISACODYL 10 MG SUPPOSITORY RECTALLY SCH ×2 (12:27→21:53)
--- NOTE | 2017-10-14 16:33 | CT Scan Report ---
Indication: poor intake, concerns for dental infection PROCEDURE: CT maxillofacial wo contrast: Encounter: Initial Comparison: None Technique: Axial noncontrast CT images through the mid face were performed with coronal and sagittal two-dimensional reformats. Automated Exposure Control and Iterative Reconstruction dose reducing techniques were utilized. Findings: No acute maxillofacial fracture. Exam is limited by motion artifact. No fluid collection or abscess seen. The globes are intact. Lenses are located. Significant brain atrophy noted incidentally. Small dental caries present in the right maxillary incisors. Large alma seen in the right second premolar. No periapical abscess noted. Mild degenerative change in the cervical spine. 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 No CT evidence of periapical abscess formation. .
[2017-10-14] MEDS: SENNA + DOCUSATE TABLET PO SCH (22:04)
[2017-10-15] MEDS: CLINDAMYCIN PB 600 MG/50 ML BAG IV SCH ×2 (00:25→06:13)
[2017-10-15] MEDS: SALINE FLUSH 10ml SYRINGE IVF PRN ×2 (00:25→20:57)
--- NOTE | 2017-10-15 09:02 | Progress Note ---
- Date 10/15/17 Subjective: Fermin was awake, alert, and able to track me with his eyes. He is nonverbal but grunts occasionally. He is not in any distress this morning - no grimacing or moaning. He moves his eyes frequently. His nurse reports that he's eating better, but she's having a difficult time encouraging him to drink fluids. Objective Vital signs: Temperature 96.8 F 10/15/17 07:25 Pulse Rate 105 H 10/15/17 07:25 Respiratory Rate 16 10/15/17 07:25 Blood Pressure 124/74 10/15/17 07:25 Pulse Oximetry 95 10/15/17 07:25 Rhythm: Normal Sinus Rhythm Height/Weight/BMI: Height 1.45 m Weight 50.1 kg Body Mass Index 20.9 - Constitutional Present: no acute distress, thin - Routine HEENT Exam Eye: Absent: conjunctival icterus, scleral injection ENT: Present: mucous membranes moist - Routine Respiratory Exam Present: CTA bilaterally - Routine Cardiovascular Exam Present: RRR, S1, S2 - Routine Abdominal Exam Present: soft, non tender - Routine Extremities Exam Present: no edema, pulses intact - Routine Musculoskeletal Exam Musculoskeletal: Present: contractures - Routine Skin Exam Present: intact, dry, warm - Routine Neurological Exam Present: alert - Routine Psychiatric Exam Present: unable to assess Results - Labs CBC & Chem 7: 10/13/17 04:07 10/15/17 04:28 Assessment and Plan (1) Hypernatremia Current visit: Yes Status: Acute Assessment and Plan: IMPRESSION Severe hypernatremia [163] POA - resolved. UTI with E. coli -finished seven-day course of Rocephin on 10/12/2017 Leukocytosis, POA Increased monocyte count-mono screen is negative Hypokalemia, not POA - resolved. Recent dental infection Dysphagia Post measles encephalitis Spastic quadriplegia Allergic rhinitis HX of MRSA abscesses Hx of aspiration pneumonia Hx of recurrent small bowel obstruction Hx of UTI (urinary tract infection) Dextroscoliosis Constipation -bowel movement on 10/13/2017 Hx of fecal impaction of colon GERD (gastroesophageal reflux disease) Concerns for dental infection recently-maxillofacial CT obtained 10/12/2017 - Clindamycin 10/08/17-10/15/17 Poor by mouth intake-improved Malnutrition with low prealbumin PLAN - 10/15/17: Eating has improved but he's not drinking enough liquids. His sodium has been climbing since IVF were dc'd, and this am is up to 147. Continue to encourage PO fluids; if sodium continues to climb we may need to resume fluids. Discussed with nursing. Maxillofacial CT scan was negative for abscess. Clindamycin dc'd today. He does not appear to be in distress or pain. Had BM yesterday; continue bowel regimen d/t hx of constipation and fecal impaction. 10/15/2017-4:40 PM-I reviewed this chart, the patient history, and the [employer]'s/PA 's documented findings as above. We discussed and formulated the assessment and plan as above with the additions below.-Dr. Avitia Per the patient's nurse, the patient is not eating or drinking as well today. He ate very well yesterday but did not have much free water or other liquid to drink. Sodium is up slightly to 147 today. On exam, the patient appears in no distress. Oropharynx is moist. Chest is clear to auscultation. Cardiovascular reveals a regular rate and rhythm. Abdomen is soft and nontender. Extremities reveal spastic quadriplegia with contractions. Impression and plan Regarding poor by mouth intake, the patient was doing better yesterday except for liquid intake. Today he's not eating as well. I did talk with the speech therapist and told her that his sister thought he used to Sippy cup well in the past. The speech therapist did get some sippy cups, but the patient would not drink from them. I did encourage the nurse to retry feeding him now and letting me know if he is eating or drinking. If he is not, will need to restart IV fluids. Regarding possible dental infection, CT maxillofacial did not show abscess. Clindamycin was discontinued. DVT Prophylaxis: SCD's Resuscitation Status: Do Not Resuscitate - Physician Narrative Narrative: Date: 10/15/17 Time: 0858 Hospital Course Summary Disclaimer: The visit summary below is not to be considered part of the above Progress Note. Hospital Course: 10/04/17 Admission - OBS status Admit to the hospitalist service, observation status. Recheck Na now and trend every 6 hours. Start D5W at 60 mL/hr with a goal sodium reduction of no more than 10 mEq/L over the next 24 hours. History of SBO: check abdominal film. UA indicative of UTI, minimally elevated wbc, however he is afebrile. He is incontinent of B/B. Send for culture and monitor symptoms for now. Consult speech therapy. Of note, PEG placement has been considered but EGD in 2014 revealed a gastric anatomy that was not conducive to PEG placement. Other pertinent labs checked this am: Hgb 15.6, K 3.9, BUN 28, Cr 0.8, TSH 0.65 , prealbumin 26.5. Code status: DNR. 10/05/17 Given persistent severe hypernatremia, will change status to inpatient. Continue to monitor serial sodium levels every 6 hours. Sodium does continue to slowly trend down. Continues to be on D5W at 60 ML per hour. Discussed with speech therapy. Recommends pured diet with syrup and nectar fluids and crushed medications. Encourage PO intake. Awaiting C/S of urine prior to initiation of antibiotic therapy, as this may be asymptomatic bacteruria. Patient does not appear to have any acute symptoms and does not appear septic at this time. We will continue to follow routine labs, and monitor for fever. At this time Urine culture reveals no growth. 10/06/17 Sodium continues to trend down slowly, today at 151. Potassium remains normal In culture did grow positive for Escherichia coli. Patient started on IV Rocephin for antimicrobial coverage. White count was noted to be elevated at 14.9 this morning. He remains afebrile Continue to encourage oral intake- pureed with thickened liquids 10/07/17 Sodium continues to Improve- NA today 148. Continues on D5W IV fluids; with decreased potassium, will change to D5W with 20mEq KCl at 75cc/hr. Continues on IV Rocephin for antimicrobial coverage. Hypokalemia potassium 3.2 today. Will given one time PO dose of potassium supplementation Pureed with thickened liquids. 10/08/17 WBC increased to 17.3 despite ceftriaxone-sensitive E. coli UTI. Will check CXR because of aspiration history. Consider dental etiology; will start clindamycin. Gross exam does not correlate with a deep space inspection since he is able to open his mouth to eat and swallow without difficulty, but we have not been successful in inspecting his oral cavity. This would require sedation. We do know that he had a recent dental infection and is due to have all his teeth pulled out. Sodium decreased to 145. Oral intake still poor; continue IVF. Hypokalemia has been corrected. CXR not showing infiltrate. Increased bowel gas noted. Nursing to give fleets to help motivated bowel gas. 10/09/17 WBC continues to trend up (WBC 21.8) with 2% bandemia. Patient remains afebrile. Continue treatment of E.coli UTI with Rocephin (day 3). Continue clindamycin for possible dental infection (day 1). Gross exam does not correlate with a deep space inspection since he is able to open his mouth to eat and swallow without difficulty, but we have not been successful in inspecting his oral cavity. This would require sedation. We do know that he had a recent dental infection and is due to have all his teeth pulled out. Schedule acetaminophen 650mg QID to help pain. CXR revealed bibasilar atelectasis. Continue to monitor respiratory function closely. Sodium stable at 145. Oral intake poor. Continue D5w with KCl at 60cc/hr. 10/10/17 WBC improved to 15.2. Continue Clinda (started 10/08) for suspected oral infection and Rocephin for E. coli UTI (started 10/06) Sodium improved to 145, but oral liquid intake is poor and meal intake is variable. His weight is decreasing. Do not feel his intake is adequate enough to safely stop IVF at this time. May need to have conversation with his sister regarding TPN if appetite does not improve. Previous attempt at PEG tube was unsuccessful. He appears to be in pain: he had previously been on scheduled Tramadol prior to admission; will resume Tramadol QID. 10/11/17 White count continues to decrease, currently at 12.6. Continue clindamycin, which was started on 10/08/17 for suspected oral infection and Rocephin for Escherichia coli UTI, which was started on 10/02/41. Sodium improved to 144. Oral intake is still poor, howeve, he has a history of poor oral intake. Will discontinue IV fluids and reassess after breakfast and lunch. Continue tramadol and Tylenol for pain. 10/12/17 WBC increased to 14.1. Continue clindamycin for suspected oral infection; Rocephin for Escherichia coli UTI While Na improved to 143, he is not taking in enough oral liquids or nutrition to sustain life. At this point, will restart IVF (D5 1/2NS @ 60 mL/hr) but we will need to have a conversation regarding goals of care with the patient's sister/DPOA. 10/14/17 The patient has been eating and drinking well the past 2 days. We'll discontinue IV fluids. Possible [facility] if he continues to eat and drink well. Continue clindamycin for now for possible dental infection. The patient did have a bowel movement yesterday. We'll give a Dulcolax suppository again today. He has history of constipation and fecal impaction. 10/15/17 Eating has improved but he's not drinking enough liquids. His sodium has been climbing since IVF were dc'd, and this am is up to 147. Continue to encourage PO fluids; if sodium continues to climb we may need to resume fluids. Discussed with nursing. Maxillofacial CT scan was negative for abscess. Clindamycin dc'd today. He does not appear to be in distress or pain.
[2017-10-15] MEDS: TRAMADOL 50 MG TABLET PO SCH ×4 (09:09→20:57)
[2017-10-15] MEDS: GABAPENTIN 100 MG CAPSULE PO SCH ×2 (09:10→20:56)
[2017-10-15] MEDS: ACETAMINOPHEN 325 MG TABLET PO SCH ×4 (09:11→20:56)
[2017-10-15] MEDS: POLYETHYL GLYCOL 3350 17gm PACKET PO SCH (09:12)
[2017-10-15] MEDS: [UNRECOGNIZED DRUG - OTHER] TOP SCH ×2 (09:14→21:01)
[2017-10-15] MEDS: VITAMINS A TOP SCH ×2 (09:14→21:01)
[2017-10-15] MEDS: BISACODYL 10 MG SUPPOSITORY RECTALLY SCH (20:56)
[2017-10-15] MEDS: SENNA + DOCUSATE TABLET PO SCH (20:57)
[2017-10-15] MEDS ORDERED: FALL RISK - PHARMACY CONSULT MC ONE (22:10)
[2017-10-16] MEDS: GABAPENTIN 100 MG CAPSULE PO SCH ×2 (09:12→21:56)
[2017-10-16] MEDS: ACETAMINOPHEN 325 MG TABLET PO SCH ×4 (09:12→21:55)
[2017-10-16] MEDS: TRAMADOL 50 MG TABLET PO SCH ×4 (09:13→21:56)
[2017-10-16] MEDS: VITAMINS A TOP SCH ×2 (09:13→22:00)
[2017-10-16] MEDS: [UNRECOGNIZED DRUG - OTHER] TOP SCH ×2 (09:13→22:00)
[2017-10-16] MEDS: SALINE FLUSH 10ml SYRINGE IVF PRN (09:13)
[2017-10-16] MEDS: POLYETHYL GLYCOL 3350 17gm PACKET PO SCH (09:29)
--- NOTE | 2017-10-16 10:45 | Progress Note ---
- Date 10/16/17 Subjective: Bradly was awake, and drenched with sweat. His face, chest, and arms were flushed. He was not in any respiratory distress. He placed his finger in his mouth occasionally. He did not moan or grimace in pain. I tried to give him a drink from a sippy cup but he clamped his mouth shut. Objective Vital signs: Temperature 98.4 F 10/16/17 08:47 Pulse Rate 94 10/16/17 08:50 Respiratory Rate 16 10/16/17 07:23 Blood Pressure 115/72 10/16/17 07:23 Pulse Oximetry 94 10/16/17 08:50 Rhythm: Normal Sinus Rhythm Height/Weight/BMI: Height 1.45 m Weight 50 kg Body Mass Index 20.9 - Constitutional Present: thin - Routine HEENT Exam Eye: Absent: conjunctival icterus, scleral injection - Routine Respiratory Exam Present: CTA bilaterally (anteriorly) - Routine Cardiovascular Exam Present: RRR, S1, S2 - Routine Abdominal Exam Present: soft, normoactive bowel sounds (hypoactive), non distended, non tender - Routine Extremities Exam Present: no edema, pulses intact - Routine Musculoskeletal Exam Musculoskeletal: Present: contractures - Routine Skin Exam Absent: dry (very diaphoretic and flushed) - Routine Neurological Exam Present: alert - Routine Psychiatric Exam Present: unable to assess Results - Labs CBC & Chem 7: 10/16/17 08:32 10/16/17 08:32 Assessment and Plan (1) Hypernatremia Current visit: Yes Status: Acute Assessment and Plan: IMPRESSION Severe hypernatremia [163] POA - resolved. UTI with E. coli -finished seven-day course of Rocephin on 10/12/2017 Leukocytosis, POA Increased monocyte count-mono screen is negative Hypokalemia, not POA - resolved. Recent dental infection Dysphagia Post measles encephalitis Spastic quadriplegia Allergic rhinitis HX of MRSA abscesses Hx of aspiration pneumonia Hx of recurrent small bowel obstruction Hx of UTI (urinary tract infection) Dextroscoliosis Constipation Hx of fecal impaction of colon GERD (gastroesophageal reflux disease) Concerns for dental infection recently-maxillofacial CT obtained 10/12/2017 - Clindamycin 10/08/17-10/15/17 Poor by mouth intake-improved Malnutrition with low prealbumin PLAN - 10/16/17: Very diaphoretic but no fever. WBC increased slightly to 11.2. Rocephin was discontinued on 10/12 and Clinda was stopped on 10/15. Still with poor liquid intake and Na is slowly increasing since IVF have been discontinued. Will restart D5 07/17 NS at 75 mL/hr. BM on 10/14/17, will ask nurse to give dulcolax suppository now, and fleet's if needed. Discussed with Dr. Gil. DVT Prophylaxis: SCD's Resuscitation Status: Do Not Resuscitate - Physician Narrative Physician: Nitesh Gil MD Narrative: Date: 10/16/17 Time: 1033 Have independently interviewed and examined pt. Chart reviewed. Case discussed with CM and my COST AND RISK ANALYSIS MANAGER. Care plan developed with my supervision; agree with above. Resting soundly in bed. Not had oral intake today. Lungs: decreased, no distress CV: regular AB: soft nt EXT: thin Plan: Restart IVF due to increasing sodium and no oral drive. Continue pain control. Recommend palliative consultation. Hospital Course Summary Disclaimer: The visit summary below is not to be considered part of the above Progress Note. Hospital Course: 10/04/17 Admission - OBS status Admit to the hospitalist service, observation status. Recheck Na now and trend every 6 hours. Start D5W at 60 mL/hr with a goal sodium reduction of no more than 10 mEq/L over the next 24 hours. History of SBO: check abdominal film. UA indicative of UTI, minimally elevated wbc, however he is afebrile. He is incontinent of B/B. Send for culture and monitor symptoms for now. Consult speech therapy. Of note, PEG placement has been considered but EGD in 2014 revealed a gastric anatomy that was not conducive to PEG placement. Other pertinent labs checked this am: Hgb 15.6, K 3.9, BUN 28, Cr 0.8, TSH 0.65 , prealbumin 26.5. Code status: DNR. 10/05/17 Given persistent severe hypernatremia, will change status to inpatient. Continue to monitor serial sodium levels every 6 hours. Sodium does continue to slowly trend down. Continues to be on D5W at 60 ML per hour. Discussed with speech therapy. Recommends pured diet with syrup and nectar fluids and crushed medications. Encourage PO intake. Awaiting C/S of urine prior to initiation of antibiotic therapy, as this may be asymptomatic bacteruria. Patient does not appear to have any acute symptoms and does not appear septic at this time. We will continue to follow routine labs, and monitor for fever. At this time Urine culture reveals no growth. 10/06/17 Sodium continues to trend down slowly, today at 151. Potassium remains normal In culture did grow positive for Escherichia coli. Patient started on IV Rocephin for antimicrobial coverage. White count was noted to be elevated at 14.9 this morning. He remains afebrile Continue to encourage oral intake- pureed with thickened liquids 10/07/17 Sodium continues to Improve- NA today 148. Continues on D5W IV fluids; with decreased potassium, will change to D5W with 20mEq KCl at 75cc/hr. Continues on IV Rocephin for antimicrobial coverage. Hypokalemia potassium 3.2 today. Will given one time PO dose of potassium supplementation Pureed with thickened liquids. 10/08/17 WBC increased to 17.3 despite ceftriaxone-sensitive E. coli UTI. Will check CXR because of aspiration history. Consider dental etiology; will start clindamycin. Gross exam does not correlate with a deep space inspection since he is able to open his mouth to eat and swallow without difficulty, but we have not been successful in inspecting his oral cavity. This would require sedation. We do know that he had a recent dental infection and is due to have all his teeth pulled out. Sodium decreased to 145. Oral intake still poor; continue IVF. Hypokalemia has been corrected. CXR not showing infiltrate. Increased bowel gas noted. Nursing to give fleets to help motivated bowel gas. 10/09/17 WBC continues to trend up (WBC 21.8) with 2% bandemia. Patient remains afebrile. Continue treatment of E.coli UTI with Rocephin (day 3). Continue clindamycin for possible dental infection (day 1). Gross exam does not correlate with a deep space inspection since he is able to open his mouth to eat and swallow without difficulty, but we have not been successful in inspecting his oral cavity. This would require sedation. We do know that he had a recent dental infection and is due to have all his teeth pulled out. Schedule acetaminophen 650mg QID to help pain. CXR revealed bibasilar atelectasis. Continue to monitor respiratory function closely. Sodium stable at 145. Oral intake poor. Continue D5w with KCl at 60cc/hr. 10/10/17 WBC improved to 15.2. Continue Clinda (started 10/08) for suspected oral infection and Rocephin for E. coli UTI (started 10/06) Sodium improved to 145, but oral liquid intake is poor and meal intake is variable. His weight is decreasing. Do not feel his intake is adequate enough to safely stop IVF at this time. May need to have conversation with his sister regarding TPN if appetite does not improve. Previous attempt at PEG tube was unsuccessful. He appears to be in pain: he had previously been on scheduled Tramadol prior to admission; will resume Tramadol QID. 10/11/17 White count continues to decrease, currently at 12.6. Continue clindamycin, which was started on 10/08/17 for suspected oral infection and Rocephin for Escherichia coli UTI, which was started on 10/02/41. Sodium improved to 144. Oral intake is still poor, howeve, he has a history of poor oral intake. Will discontinue IV fluids and reassess after breakfast and lunch. Continue tramadol and Tylenol for pain. 10/12/17 WBC increased to 14.1. Continue clindamycin for suspected oral infection; Rocephin for Escherichia coli UTI While Na improved to 143, he is not taking in enough oral liquids or nutrition to sustain life. At this point, will restart IVF (D5 1/2NS @ 60 mL/hr) but we will need to have a conversation regarding goals of care with the patient's sister/DPOA. 10/14/17 The patient has been eating and drinking well the past 2 days. We'll discontinue IV fluids. Possible discharge soon back to his [place] [facility] facility if he continues to eat and drink well. Continue clindamycin for now for possible dental infection. The patient did have a bowel movement yesterday. We'll give a Dulcolax suppository again today. He has history of constipation and fecal impaction. 10/15/17 Eating has improved but he's not drinking enough liquids. His sodium has been climbing since IVF were dc'd, and this am is up to 147. Continue to encourage PO fluids; if sodium continues to climb we may need to resume fluids. Discussed with nursing. Maxillofacial CT scan was negative for abscess. Clindamycin dc'd today. He does not appear to be in distress or pain. 10/16/17 Very diaphoretic but no fever. WBC increased slightly to 11.2. Rocephin was discontinued on 10/12 and Clinda was stopped on 10/15. Restart D5 07/17 NS at 75 mL/ hr. BM on 10/14/17, will ask nurse to give dulcolax suppository now, and fleet's if needed.
--- NOTE | 2017-10-16 11:42 | XRay Report ---
Indication: leukocytosis PROCEDURE: XR chest 1V: Encounter: Initial Comparison: October 08, 2017 Findings: Lungs are stable in appearance. No new or worsening airspace disease. No gross pleural effusion or pneumothorax. Heart size and mediastinal contours are grossly stable allowing for rotation. Pulmonary vascularity appears normal. Distended bowel loops seen beneath the diaphragm, less distended than the prior study. Severe scoliosis. Impression: Stable chest without focal pneumonia. .
[2017-10-16] MEDS: D5-1/2NS 1,000 ML IV SCH (12:06)
[2017-10-16] MEDS: SENNA + DOCUSATE TABLET PO SCH (21:55)
[2017-10-16] MEDS: BISACODYL 10 MG SUPPOSITORY RECTALLY SCH (21:56)
[2017-10-17] MEDS: D5-1/2NS 1,000 ML IV SCH ×4 (01:29→21:49)
[2017-10-17] MEDS: GABAPENTIN 100 MG CAPSULE PO SCH ×2 (09:13→20:57)
[2017-10-17] MEDS: ACETAMINOPHEN 325 MG TABLET PO SCH ×4 (09:13→20:56)
[2017-10-17] MEDS: TRAMADOL 50 MG TABLET PO SCH ×4 (09:14→20:57)
[2017-10-17] MEDS: POLYETHYL GLYCOL 3350 17gm PACKET PO SCH (09:15)
[2017-10-17] MEDS: VITAMINS A TOP SCH ×2 (09:30→20:58)
[2017-10-17] MEDS: [UNRECOGNIZED DRUG - OTHER] TOP SCH ×2 (09:30→20:58)
--- NOTE | 2017-10-17 10:50 | Progress Note ---
- Date 10/17/17 Subjective: Bradly is seen this morning in follow up. He continues to have decreased PO intake. Nothing yesterday for 24 hours. He continues to be afebrile, vital signs normal. No evidence of acute sepsis. And fibular CT did show presence of a cavity on the right pre-molar. Objective Vital signs: Temperature 96.6 F L 10/17/17 00:00 Pulse Rate 81 10/17/17 07:05 Respiratory Rate 16 10/17/17 07:05 Blood Pressure 103/68 10/17/17 07:05 Pulse Oximetry 99 10/17/17 07:05 Height/Weight/BMI: Height 1.45 m Weight 49.7 kg Body Mass Index 20.9 - Constitutional Present: no acute distress, well nourished, well developed - Routine HEENT Exam Eye: Present: EOMI ENT: Present: mucous membranes moist - Routine Respiratory Exam Present: diminished air movement - Routine Cardiovascular Exam Present: RRR, S1, S2. Absent: murmur - Routine Abdominal Exam Present: soft, normoactive bowel sounds, non distended. Absent: tenderness - Routine Extremities Exam Present: no edema - Routine Skin Exam Present: intact, dry, warm - Routine Neurological Exam Present: alert, CN II-XII intact, altered mental status - Routine Lymphatic Exam Lymphatic: Absent: adenopathy - Routine Psychiatric Exam Present: cooperative Results - Labs CBC & Chem 7: 10/17/17 03:53 10/17/17 03:53 Assessment and Plan (1) Hypernatremia Current visit: Yes Status: Acute Assessment and Plan: IMPRESSION Severe hypernatremia [163] POA - resolved. UTI with E. coli -finished seven-day course of Rocephin on 10/12/2017 Leukocytosis, POA Increased monocyte count-mono screen is negative Hypokalemia, not POA - resolved. Recent dental infection Dysphagia Post measles encephalitis Spastic quadriplegia Allergic rhinitis HX of MRSA abscesses Hx of aspiration pneumonia Hx of recurrent small bowel obstruction Hx of UTI (urinary tract infection) Dextroscoliosis Constipation Hx of fecal impaction of colon GERD (gastroesophageal reflux disease) Concerns for dental infection recently-maxillofacial CT obtained 10/12/2017 - Clindamycin 10/08/17-10/15/17 Poor by mouth intake-improved Malnutrition with low prealbumin PLAN 10/17 Did call patients DPOA, sister Meghana to discuss oral intake status and forward plan of care She feels that his PO intake is based on who is feeding him. She feels he may do better with oral intake with his familiar care givers We will meet her this afternoon to discuss plans. NA remains up at 145 and potassium decreased at 3.4. Continue D5 1/2 NS for hydration May need to consider palliative care DVT Prophylaxis: SCD's Resuscitation Status: Do Not Resuscitate - Time spent with patient Time with patient PN: 35 minutes Coordination of Care: >50% of visit spent providing counseling/coordination of care - Physician Narrative Physician: Nitesh Gil MD Narrative: Date: 10/17/17 Time: 1042 Have independently interviewed and examined patient. Chart reviewed. Case discussed with CM, patient's sister and my MANUFACTURING PROJECT MANAGER. Care plan developed with my supervision; agree with above. Doing about the same-oral drive decreased, resists eating. Lungs: decreased, no distress CV: regular AB: soft nt/nd +BS EXT: thin, no edema Plan: Has long (30 minute) care plan discussion with pt's sister, CM, speech therapy, and transitional care farm planner from [facility]. Sister raised good concerns about ways to help his oral intake. She's resistant to thickener (as he's never needed them in the past), desiring him to drink regular water. Nursing and speech in agreement to make changes in feeding. Pt did take some applesause well this afternoon, but when I came in he was resisting efforts of sister to feed him. Continue IVF to help normalize sodium. Monitor lab. Hospital Course Summary Disclaimer: The visit summary below is not to be considered part of the above Progress Note. Hospital Course: 10/04/17 Admission - OBS status Admit to the hospitalist service, observation status. Recheck Na now and trend every 6 hours. Start D5W at 60 mL/hr with a goal sodium reduction of no more than 10 mEq/L over the next 24 hours. History of SBO: check abdominal film. UA indicative of UTI, minimally elevated wbc, however he is afebrile. He is incontinent of B/B. Send for culture and monitor symptoms for now. Consult speech therapy. Of note, PEG placement has been considered but EGD in 2014 revealed a gastric anatomy that was not conducive to PEG placement. Other pertinent labs checked this am: Hgb 15.6, K 3.9, BUN 28, Cr 0.8, TSH 0.65 , prealbumin 26.5. Code status: DNR. 10/05/17 Given persistent severe hypernatremia, will change status to inpatient. Continue to monitor serial sodium levels every 6 hours. Sodium does continue to slowly trend down. Continues to be on D5W at 60 ML per hour. Discussed with speech therapy. Recommends pured diet with syrup and nectar fluids and crushed medications. Encourage PO intake. Awaiting C/S of urine prior to initiation of antibiotic therapy, as this may be asymptomatic bacteruria. Patient does not appear to have any acute symptoms and does not appear septic at this time. We will continue to follow routine labs, and monitor for fever. At this time Urine culture reveals no growth. 10/06/17 Sodium continues to trend down slowly, today at 151. Potassium remains normal In culture did grow positive for Escherichia coli. Patient started on IV Rocephin for antimicrobial coverage. White count was noted to be elevated at 14.9 this morning. He remains afebrile Continue to encourage oral intake- pureed with thickened liquids 10/07/17 Sodium continues to Improve- NA today 148. Continues on D5W IV fluids; with decreased potassium, will change to D5W with 20mEq KCl at 75cc/hr. Continues on IV Rocephin for antimicrobial coverage. Hypokalemia potassium 3.2 today. Will given one time PO dose of potassium supplementation Pureed with thickened liquids. 10/08/17 WBC increased to 17.3 despite ceftriaxone-sensitive E. coli UTI. Will check CXR because of aspiration history. Consider dental etiology; will start clindamycin. Gross exam does not correlate with a deep space inspection since he is able to open his mouth to eat and swallow without difficulty, but we have not been successful in inspecting his oral cavity. This would require sedation. We do know that he had a recent dental infection and is due to have all his teeth pulled out. Sodium decreased to 145. Oral intake still poor; continue IVF. Hypokalemia has been corrected. CXR not showing infiltrate. Increased bowel gas noted. Nursing to give fleets to help motivated bowel gas. 10/09/17 WBC continues to trend up (WBC 21.8) with 2% bandemia. Patient remains afebrile. Continue treatment of E.coli UTI with Rocephin (day 3). Continue clindamycin for possible dental infection (day 1). Gross exam does not correlate with a deep space inspection since he is able to open his mouth to eat and swallow without difficulty, but we have not been successful in inspecting his oral cavity. This would require sedation. We do know that he had a recent dental infection and is due to have all his teeth pulled out. Schedule acetaminophen 650mg QID to help pain. CXR revealed bibasilar atelectasis. Continue to monitor respiratory function closely. Sodium stable at 145. Oral intake poor. Continue D5w with KCl at 60cc/hr. 10/10/17 WBC improved to 15.2. Continue Clinda (started 10/08) for suspected oral infection and Rocephin for E. coli UTI (started 10/06) Sodium improved to 145, but oral liquid intake is poor and meal intake is variable. His weight is decreasing. Do not feel his intake is adequate enough to safely stop IVF at this time. May need to have conversation with his sister regarding TPN if appetite does not improve. Previous attempt at PEG tube was unsuccessful. He appears to be in pain: he had previously been on scheduled Tramadol prior to admission; will resume Tramadol QID. 10/11/17 White count continues to decrease, currently at 12.6. Continue clindamycin, which was started on 10/08/17 for suspected oral infection and Rocephin for Escherichia coli UTI, which was started on 10/02/41. Sodium improved to 144. Oral intake is still poor, howeve, he has a history of poor oral intake. Will discontinue IV fluids and reassess after breakfast and lunch. Continue tramadol and Tylenol for pain. 10/12/17 WBC increased to 14.1. Continue clindamycin for suspected oral infection; Rocephin for Escherichia coli UTI While Na improved to 143, he is not taking in enough oral liquids or nutrition to sustain life. At this point, will restart IVF (D5 1/2NS @ 60 mL/hr) but we will need to have a conversation regarding goals of care with the patient's sister/DPOA. 10/14/17 The patient has been eating and drinking well the past 2 days. We'll discontinue IV fluids. Possible discharge soon back to his [place] [facility] facility if he continues to eat and drink well. Continue clindamycin for now for possible dental infection. The patient did have a bowel movement yesterday. We'll give a Dulcolax suppository again today. He has history of constipation and fecal impaction. 10/15/17 Eating has improved but he's not drinking enough liquids. His sodium has been climbing since IVF were dc'd, and this am is up to 147. Continue to encourage PO fluids; if sodium continues to climb we may need to resume fluids. Discussed with nursing. Maxillofacial CT scan was negative for abscess. Clindamycin dc'd today. He does not appear to be in distress or pain. 10/16/17 Very diaphoretic but no fever. WBC increased slightly to 11.2. Rocephin was discontinued on 10/12 and Clinda was stopped on 10/15. Restart D5 1/2 NS at 75 mL/ hr. BM on 10/14/17, will ask nurse to give dulcolax suppository now, and fleet's if needed. 10/17/17 Did call patients CAREY, sister Meghana to discuss oral intake status and forward plan of care She feels that his PO intake is based on who is feeding him. She feels he may do better with oral intake with his familiar care givers We will meet her this afternoon to discuss plans. NA remains up at 145 and potassium decreased at 3.4. Continue D5 1/2 NS for hydration May need to consider palliative care
[2017-10-17] MEDS: BISACODYL 10 MG SUPPOSITORY RECTALLY SCH (20:57)
[2017-10-17] MEDS: SENNA + DOCUSATE TABLET PO SCH (20:57)
[2017-10-18] MEDS: ACETAMINOPHEN 325 MG TABLET PO SCH ×4 (08:03→21:16)
[2017-10-18] MEDS: [UNRECOGNIZED DRUG - OTHER] TOP SCH ×2 (08:04→21:19)
[2017-10-18] MEDS: VITAMINS A TOP SCH ×2 (08:04→21:19)
[2017-10-18] MEDS: POLYETHYL GLYCOL 3350 17gm PACKET PO SCH (08:04)
[2017-10-18] MEDS: TRAMADOL 50 MG TABLET PO SCH ×4 (08:04→21:16)
[2017-10-18] MEDS: GABAPENTIN 100 MG CAPSULE PO SCH ×2 (08:04→21:19)
[2017-10-18] MEDS: D5-1/2NS 1,000 ML IV SCH (08:35)
[2017-10-18] MEDS: D5W 1,000 ML IV SCH ×2 (10:15→23:46)
--- NOTE | 2017-10-18 11:00 | Progress Note ---
- Date 10/18/17 Subjective: Bradly is seen while sleeping this morning and awakens easily with voice and touch stimuli but quickly falls back to sleep. Nursing reports that he continues to have decreased oral intake. Care plan discussed with patient's sister yesterday at length and his resistance to eating. She continues to remain optimistic that his oral intake will improve once he is able to be fed by a familiar patient centered care specialist, though he was resistant to eating when she fed him last evening. Labs today revealed increased sodium (147). Objective Vital signs: Temperature 97.6 F 10/18/17 07:56 Pulse Rate 72 10/18/17 07:56 Respiratory Rate 18 10/18/17 07:56 Blood Pressure 124/69 10/18/17 07:56 Pulse Oximetry 94 10/18/17 07:56 Rhythm: Normal Sinus Rhythm Height/Weight/BMI: Height 4 ft 9 in Weight 111 lb 8.862 oz Body Mass Index 20.9 Comments: Sleeping; awakens easily to voice and touch stimuli but quickly falls back to sleep. - Constitutional Present: no acute distress, thin - Routine HEENT Exam Head: Present: normocephalic, atraumatic Eye: Present: PERRL. Absent: conjunctival icterus ENT: Present: mucous membranes dry - Routine Respiratory Exam Present: CTA bilaterally. Absent: rhonchi, stridor, wheezes, crackles - Routine Cardiovascular Exam Present: RRR, S1, S2 - Routine Abdominal Exam Present: soft, normoactive bowel sounds, non distended, non tender - Routine Extremities Exam Present: no edema, pulses intact - Routine Back/Spine/Pelvis Exam Back/Spine: Absent: vertebral tenderness - Routine Musculoskeletal Exam Musculoskeletal: Present: no clubbing or cyanosis - Routine Skin Exam Present: dry, warm. Absent: jaundice Comments: afebrile - Routine Neurological Exam Present: hearing grossly intact - Routine Lymphatic Exam Lymphatic: Absent: lymphedema - Routine Psychiatric Exam Present: cooperative Results - Labs CBC & Chem 7: 10/18/17 08:49 10/18/17 08:49 Assessment and Plan (1) Hypernatremia Current visit: Yes Status: Acute Assessment and Plan: IMPRESSION Severe hypernatremia [163] POA - resolved UTI with E. coli -finished seven-day course of Rocephin on 10/12/2017 Leukocytosis, POA Increased monocyte count-mono screen is negative Hypokalemia, not POA - resolved Recent dental infection Dysphagia Post measles encephalitis Spastic quadriplegia Allergic rhinitis HX of MRSA abscesses Hx of aspiration pneumonia Hx of recurrent small bowel obstruction Hx of UTI (urinary tract infection) Dextroscoliosis Constipation Hx of fecal impaction of colon GERD (gastroesophageal reflux disease) Concerns for dental infection recently-maxillofacial CT obtained 10/12/2017 - Clindamycin 10/08/17-10/15/17 Poor by mouth intake-improved Malnutrition with low prealbumin PLAN Slight increase in sodium to 147. Decrease rate of D51/2NS to 75cc/hr. Continue to monitor labs. Continue to encourage oral intake. Speech changed liquids back to regular instead of thickened per family request. May need to consider palliative care. Anticipate discharge in near future. Continue current care plan. Jeffery With sodium increased to 147 will change IVF to D5W at 75cc/hr. Sister helping to feed patient, still very reluctant for oral intake (but takes applesauce well). DVT Prophylaxis: SCD's Resuscitation Status: Do Not Resuscitate - Time spent with patient Time with patient PN: 25 minutes - Physician Narrative Physician: iNtesh Gil MD Narrative: Date: 10/18/17 Time: 1505 Have independently interviewed and examined pt. Chart reviewed. Case discussed with CM and my PA. Care plan developed with my supervision; agree with above. Resting in bed. Sister at bedside attempting to feed patient. While he took the applesauce well, not interested in other food. Breathing stable. Lungs: decreased, no distress CV: regular EXT: thin, no edema Plan: With sodium increased to 147 will change IVF to D5W at 75cc/hr. Continue to encourage oral intake. Hospital Course Summary Disclaimer: The visit summary below is not to be considered part of the above Progress Note. Hospital Course: 10/04/17 Admission - OBS status Admit to the hospitalist service, observation status. Recheck Na now and trend every 6 hours. Start D5W at 60 mL/hr with a goal sodium reduction of no more than 10 mEq/L over the next 24 hours. History of SBO: check abdominal film. UA indicative of UTI, minimally elevated wbc, however he is afebrile. He is incontinent of B/B. Send for culture and monitor symptoms for now. Consult speech therapy. Of note, PEG placement has been considered but EGD in 2014 revealed a gastric anatomy that was not conducive to PEG placement. Other pertinent labs checked this am: Hgb 15.6, K 3.9, BUN 28, Cr 0.8, TSH 0.65 , prealbumin 26.5. Code status: DNR. 10/05/17 Given persistent severe hypernatremia, will change status to inpatient. Continue to monitor serial sodium levels every 6 hours. Sodium does continue to slowly trend down. Continues to be on D5W at 60 ML per hour. Discussed with speech therapy. Recommends pured diet with syrup and nectar fluids and crushed medications. Encourage PO intake. Awaiting C/S of urine prior to initiation of antibiotic therapy, as this may be asymptomatic bacteruria. Patient does not appear to have any acute symptoms and does not appear septic at this time. We will continue to follow routine labs, and monitor for fever. At this time Urine culture reveals no growth. 10/06/17 Sodium continues to trend down slowly, today at 151. Potassium remains normal In culture did grow positive for Escherichia coli. Patient started on IV Rocephin for antimicrobial coverage. White count was noted to be elevated at 14.9 this morning. He remains afebrile Continue to encourage oral intake- pureed with thickened liquids 10/07/17 Sodium continues to Improve- NA today 148. Continues on D5W IV fluids; with decreased potassium, will change to D5W with 20mEq KCl at 75cc/hr. Continues on IV Rocephin for antimicrobial coverage. Hypokalemia potassium 3.2 today. Will given one time PO dose of potassium supplementation Pureed with thickened liquids. 10/08/17 WBC increased to 17.3 despite ceftriaxone-sensitive E. coli UTI. Will check CXR because of aspiration history. Consider dental etiology; will start clindamycin. Gross exam does not correlate with a deep space inspection since he is able to open his mouth to eat and swallow without difficulty, but we have not been successful in inspecting his oral cavity. This would require sedation. We do know that he had a recent dental infection and is due to have all his teeth pulled out. Sodium decreased to 145. Oral intake still poor; continue IVF. Hypokalemia has been corrected. CXR not showing infiltrate. Increased bowel gas noted. Nursing to give fleets to help motivated bowel gas. 10/09/17 WBC continues to trend up (WBC 21.8) with 2% bandemia. Patient remains afebrile. Continue treatment of E.coli UTI with Rocephin (day 3). Continue clindamycin for possible dental infection (day 1). Gross exam does not correlate with a deep space inspection since he is able to open his mouth to eat and swallow without difficulty, but we have not been successful in inspecting his oral cavity. This would require sedation. We do know that he had a recent dental infection and is due to have all his teeth pulled out. Schedule acetaminophen 650mg QID to help pain. CXR revealed bibasilar atelectasis. Continue to monitor respiratory function closely. Sodium stable at 145. Oral intake poor. Continue D5w with KCl at 60cc/hr. 10/10/17 WBC improved to 15.2. Continue Clinda (started 10/08) for suspected oral infection and Rocephin for E. coli UTI (started 10/06) Sodium improved to 145, but oral liquid intake is poor and meal intake is variable. His weight is decreasing. Do not feel his intake is adequate enough to safely stop IVF at this time. May need to have conversation with his sister regarding TPN if appetite does not improve. Previous attempt at PEG tube was unsuccessful. He appears to be in pain: he had previously been on scheduled Tramadol prior to admission; will resume Tramadol QID. 10/11/17 White count continues to decrease, currently at 12.6. Continue clindamycin, which was started on 10/08/17 for suspected oral infection and Rocephin for Escherichia coli UTI, which was started on 10/02/41. Sodium improved to 144. Oral intake is still poor, howeve, he has a history of poor oral intake. Will discontinue IV fluids and reassess after breakfast and lunch. Continue tramadol and Tylenol for pain. 10/12/17 WBC increased to 14.1. Continue clindamycin for suspected oral infection; Rocephin for Escherichia coli UTI While Na improved to 143, he is not taking in enough oral liquids or nutrition to sustain life. At this point, will restart IVF (D5 1/2NS @ 60 mL/hr) but we will need to have a conversation regarding goals of care with the patient's sister/DPOA. 10/14/17 The patient has been eating and drinking well the past 2 days. We'll discontinue IV fluids. Possible discharge soon back to his assisted if he continues to eat and drink well. Continue clindamycin for now for possible dental infection. The patient did have a bowel movement yesterday. We'll give a Dulcolax suppository again today. He has history of constipation and fecal impaction. 10/15/17 Eating has improved but he's not drinking enough liquids. His sodium has been climbing since IVF were dc'd, and this am is up to 147. Continue to encourage PO fluids; if sodium continues to climb we may need to resume fluids. Discussed with nursing. Maxillofacial CT scan was negative for abscess. Clindamycin dc'd today. He does not appear to be in distress or pain. 10/16/17 Very diaphoretic but no fever. WBC increased slightly to 11.2. Rocephin was discontinued on 10/12 and Clinda was stopped on 10/15. Restart D5 1/2 NS at 75 mL/ hr. BM on 10/14/17, will ask nurse to give dulcolax suppository now, and fleet's if needed. 10/17/17 Did call patients DPJERRELL, sister Meghana to discuss oral intake status and forward plan of care. She feels that his PO intake is based on who is feeding him. She feels he may do better with oral intake with his familiar care givers. We will meet her this afternoon to discuss plans. NA remains up at 145 and potassium decreased at 3.4. Continue D5 1/2 NS for hydration. May need to consider palliative care. Has long (30 minute) care plan discussion with pt's sister, CM, speech therapy, and transitional care buyer planner from [facility]. Sister raised good concerns about ways to help his oral intake. She's resistant to thickener (as he's never needed them in the past), desiring him to drink regular water. Nursing and speech in agreement to make changes in feeding. 10/18/17 Slight increase in sodium to 147; change IVF to D5W at 75cc/hr. Continue to monitor labs. Continue to encourage oral intake. Speech changed liquids back to regular instead of thickened per family request. Anticipate discharge in near future. Continue current care plan.
[2017-10-18] MEDS: SENNA + DOCUSATE TABLET PO SCH (21:15)
[2017-10-18] MEDS: BISACODYL 10 MG SUPPOSITORY RECTALLY SCH (21:17)
[2017-10-19 07:28] VITALS: BP 118/68; PULSE 69; RESP 13; TEMP 97.6; O2SAT 100
[2017-10-19] MEDS: TRAMADOL 50 MG TABLET PO SCH ×2 (09:16→09:32)
[2017-10-19] MEDS: GABAPENTIN 100 MG CAPSULE PO SCH ×2 (09:17→09:31)
[2017-10-19] MEDS: POLYETHYL GLYCOL 3350 17gm PACKET PO SCH (09:17)
[2017-10-19] MEDS: VITAMINS A TOP SCH (09:17)
[2017-10-19] MEDS: ACETAMINOPHEN 325 MG TABLET PO SCH ×2 (09:17→09:31)
[2017-10-19] MEDS: [UNRECOGNIZED DRUG - OTHER] TOP SCH (09:17)
--- NOTE | 2017-10-19 09:53 | Progress Note ---
- Date 10/19/17 Subjective: Bradly is seen while resting in bed, awake. He is breathing easily on room air and in no apparent distress. Nursing reports that they attempted to give him some applesauce this morning but he refused. Vital signs are stable. Hypernatremia resolved (Na 143). Overall, doing well and anticipate discharge today. Objective Vital signs: Temperature 97.6 F 10/19/17 07:21 Pulse Rate 69 10/19/17 07:21 Respiratory Rate 13 10/19/17 07:21 Blood Pressure 118/68 10/19/17 07:21 Pulse Oximetry 100 10/19/17 07:21 Rhythm: Normal Sinus Rhythm Height/Weight/BMI: Height 4 ft 9 in Weight 110 lb 7.225 oz Body Mass Index 20.9 Comments: resting in bed, awake and alert. - Constitutional Present: no acute distress, well nourished, well developed, thin, cooperative - Routine HEENT Exam Head: Present: normocephalic, atraumatic Eye: Present: PERRL. Absent: conjunctival icterus ENT: Present: mucous membranes moist - Routine Respiratory Exam Present: CTA bilaterally. Absent: rales, respiratory distress, rhonchi, stridor , wheezes - Routine Cardiovascular Exam Present: RRR, S1, S2 - Routine Abdominal Exam Present: soft, normoactive bowel sounds, non distended, non tender - Routine Extremities Exam Present: no edema, pulses intact - Routine Back/Spine/Pelvis Exam Back/Spine: Absent: vertebral tenderness - Routine Musculoskeletal Exam Musculoskeletal: Present: contractures - Routine Skin Exam Present: dry, warm. Absent: jaundice Comments: afebrile. - Routine Neurological Exam Present: alert, hearing grossly intact - Routine Lymphatic Exam Lymphatic: Absent: lymphedema - Routine Psychiatric Exam Present: cooperative Results - Labs CBC & Chem 7: 10/19/17 04:23 10/19/17 04:23 Assessment and Plan (1) Hypernatremia Current visit: Yes Status: Resolved Assessment and Plan: IMPRESSION Severe hypernatremia [163] POA - resolved. UTI with E. coli -finished seven-day course of Rocephin on 10/12/2017. Leukocytosis, POA Increased monocyte count-mono screen is negative Hypokalemia, not POA - resolved Recent dental infection Dysphagia Post measles encephalitis Spastic quadriplegia Allergic rhinitis HX of MRSA abscesses Hx of aspiration pneumonia Hx of recurrent small bowel obstruction Hx of UTI (urinary tract infection) Dextroscoliosis Constipation Hx of fecal impaction of colon GERD (gastroesophageal reflux disease) Concerns for dental infection recently-maxillofacial CT obtained 10/12/2017 - Clindamycin 10/08/17-10/15/17 Poor by mouth intake-improved Malnutrition with low prealbumin 10/19/17 Doing well and medically stable. Hypernatremia resolved (Na 143). Electrolytes stable. Blood counts stable. Vital signs stable. Continue to encourage oral intake. Refused applesauce this morning. Continue current care plan. Anticipate discharge today, 10/19/17. DVT Prophylaxis: SCD's Resuscitation Status: Do Not Resuscitate - Time spent with patient Time with patient PN: 25 minutes - Physician Narrative Physician: Nitesh Gil MD Narrative: Date: 10/19/17 Time: 1135 Have independently interviewed and examined pt. Chart reviewed. Case discussed with CM and my PA. Care plan developed with my supervision; agree with above. Resting comfortably in bed. Easily awakened. Non-verbal. Sodium normalized with D5W. WBC normal. Lungs: decreased, no distress CV: regular EXT: thin, no edema Plan: Will discharge to [facility] for continuation of care. Encourage oral intake. Oral consistency as per sister's wishes. Will have pt follow up with Dr Baires in 1 week. Recheck BMP in 1 week to monitor sodium. See orders for details. Hospital Course Summary Disclaimer: The visit summary below is not to be considered part of the above Progress Note. Hospital Course: 10/04/17 Admission - OBS status Admit to the hospitalist service, observation status. Recheck Na now and trend every 6 hours. Start D5W at 60 mL/hr with a goal sodium reduction of no more than 10 mEq/L over the next 24 hours. History of SBO: check abdominal film. UA indicative of UTI, minimally elevated wbc, however he is afebrile. He is incontinent of B/B. Send for culture and monitor symptoms for now. Consult speech therapy. Of note, PEG placement has been considered but EGD in 2014 revealed a gastric anatomy that was not conducive to PEG placement. Other pertinent labs checked this am: Hgb 15.6, K 3.9, BUN 28, Cr 0.8, TSH 0.65 , prealbumin 26.5. Code status: DNR. 10/05/17 Given persistent severe hypernatremia, will change status to inpatient. Continue to monitor serial sodium levels every 6 hours. Sodium does continue to slowly trend down. Continues to be on D5W at 60 ML per hour. Discussed with speech therapy. Recommends pured diet with syrup and nectar fluids and crushed medications. Encourage PO intake. Awaiting C/S of urine prior to initiation of antibiotic therapy, as this may be asymptomatic bacteruria. Patient does not appear to have any acute symptoms and does not appear septic at this time. We will continue to follow routine labs, and monitor for fever. At this time Urine culture reveals no growth. 10/06/17 Sodium continues to trend down slowly, today at 151. Potassium remains normal In culture did grow positive for Escherichia coli. Patient started on IV Rocephin for antimicrobial coverage. White count was noted to be elevated at 14.9 this morning. He remains afebrile Continue to encourage oral intake- pureed with thickened liquids 10/07/17 Sodium continues to Improve- NA today 148. Continues on D5W IV fluids; with decreased potassium, will change to D5W with 20mEq KCl at 75cc/hr. Continues on IV Rocephin for antimicrobial coverage. Hypokalemia potassium 3.2 today. Will given one time PO dose of potassium supplementation Pureed with thickened liquids. 10/08/17 WBC increased to 17.3 despite ceftriaxone-sensitive E. coli UTI. Will check CXR because of aspiration history. Consider dental etiology; will start clindamycin. Gross exam does not correlate with a deep space inspection since he is able to open his mouth to eat and swallow without difficulty, but we have not been successful in inspecting his oral cavity. This would require sedation. We do know that he had a recent dental infection and is due to have all his teeth pulled out. Sodium decreased to 145. Oral intake still poor; continue IVF. Hypokalemia has been corrected. CXR not showing infiltrate. Increased bowel gas noted. Nursing to give fleets to help motivated bowel gas. 10/09/17 WBC continues to trend up (WBC 21.8) with 2% bandemia. Patient remains afebrile. Continue treatment of E.coli UTI with Rocephin (day 3). Continue clindamycin for possible dental infection (day 1). Gross exam does not correlate with a deep space inspection since he is able to open his mouth to eat and swallow without difficulty, but we have not been successful in inspecting his oral cavity. This would require sedation. We do know that he had a recent dental infection and is due to have all his teeth pulled out. Schedule acetaminophen 650mg QID to help pain. CXR revealed bibasilar atelectasis. Continue to monitor respiratory function closely. Sodium stable at 145. Oral intake poor. Continue D5w with KCl at 60cc/hr. 10/10/17 WBC improved to 15.2. Continue Clinda (started 10/08) for suspected oral infection and Rocephin for E. coli UTI (started 10/06) Sodium improved to 145, but oral liquid intake is poor and meal intake is variable. His weight is decreasing. Do not feel his intake is adequate enough to safely stop IVF at this time. May need to have conversation with his sister regarding TPN if appetite does not improve. Previous attempt at PEG tube was unsuccessful. He appears to be in pain: he had previously been on scheduled Tramadol prior to admission; will resume Tramadol QID. 10/11/17 White count continues to decrease, currently at 12.6. Continue clindamycin, which was started on 10/08/17 for suspected oral infection and Rocephin for Escherichia coli UTI, which was started on 10/02/41. Sodium improved to 144. Oral intake is still poor, howeve, he has a history of poor oral intake. Will discontinue IV fluids and reassess after breakfast and lunch. Continue tramadol and Tylenol for pain. 10/12/17 WBC increased to 14.1. Continue clindamycin for suspected oral infection; Rocephin for Escherichia coli UTI While Na improved to 143, he is not taking in enough oral liquids or nutrition to sustain life. At this point, will restart IVF (D5 1/2NS @ 60 mL/hr) but we will need to have a conversation regarding goals of care with the patient's sister/DPOA. 10/14/17 The patient has been eating and drinking well the past 2 days. We'll discontinue IV fluids. Possible discharge soon back to his [facility] if he continues to eat and drink well. Continue clindamycin for now for possible dental infection. The patient did have a bowel movement yesterday. We'll give a Dulcolax suppository again today. He has history of constipation and fecal impaction. 10/15/17 Eating has improved but he's not drinking enough liquids. His sodium has been climbing since IVF were dc'd, and this am is up to 147. Continue to encourage PO fluids; if sodium continues to climb we may need to resume fluids. Discussed with nursing. Maxillofacial CT scan was negative for abscess. Clindamycin dc'd today. He does not appear to be in distress or pain. 10/16/17 Very diaphoretic but no fever. WBC increased slightly to 11.2. Rocephin was discontinued on 10/12 and Clinda was stopped on 10/15. Restart D5 1/2 NS at 75 mL/ hr. BM on 10/14/17, will ask nurse to give dulcolax suppository now, and fleet's if needed. 10/17/17 Did call patients DPOA, sister Meghana to discuss oral intake status and forward plan of care. She feels that his PO intake is based on who is feeding him. She feels he may do better with oral intake with his familiar care givers. We will meet her this afternoon to discuss plans. NA remains up at 145 and potassium decreased at 3.4. Continue D5 1/2 NS for hydration. May need to consider palliative care. Has long (30 minute) care plan discussion with pt's sister, CM, speech therapy, and transitional care corporate event planner from . Sister raised good concerns about ways to help his oral intake. She's resistant to thickener (as he's never needed them in the past), desiring him to drink regular water. Nursing and speech in agreement to make changes in feeding. 10/18/17 Slight increase in sodium to 147; change IVF to D5W at 75cc/hr. Continue to monitor labs. Continue to encourage oral intake. Speech changed liquids back to regular instead of thickened per family request. Anticipate discharge in near future. Continue current care plan. 10/19/17 Doing well and medically stable. Hypernatremia resolved (Na 143). Electrolytes stable. Blood counts stable. Vital signs stable. Continue to encourage oral intake. Refused applesauce this morning. Will discharge to [facility] for continuation of care. Encourage oral intake. Oral consistency as per sister's wishes - not wanting him on thickener. Will have pt follow up with Dr Baires in 1 week. Recheck BMP in 1 week to monitor sodium. See orders for details.
--- NOTE | 2017-10-19 11:52 | Extended Care Facility Orders ---
Admission Orders Admit to:: [facility] Allergies/Adverse Reactions: Allergies epoprostenol Allergy (Unknown, Verified 10/04/17 10:47) Penicillins Allergy (Unknown, Verified 10/04/17 08:59) Prostacyclin Analogues Allergy (Unknown, Verified 10/04/17 08:59) smallpox vaccine,live Allergy (Unknown, Verified 10/04/17 08:59) PROSTAPHLIN SMALL VACCINE Adverse Reaction (Unknown, Uncoded 10/04/17 08:59) Admitting Diagnosis: Hypernatremia Admitting Physician: Nitesh Gil MD Attending Physician: Dr Baires Code Status: Do Not Resuscitate Anticiapted Length of Stay: 30 days or less Rehab Potential: fair Rehab Prognosis: fair Diet: Pureed diet. Sister wishes regular liquids. May drink out of a sippy cup. Crush medications. May use Facility Protocol or Standing Orders: Yes May have flu vaccine: Yes Prison Certification: I certify that SNF services are required to be given on an Inpatient basis because of the patients need for residential care on a continuing basis for the condition(s) for which he/she received inpatient hospital services prior to his/her transfer to the SNF. SNF inpatient care is necessary for the following reasons Indication for Prison: Not Applicable - Additional Information In Event of Arrest: Do Not Start CPR Resident is Aware of Diagnosis: No Additional Orders: F/U with Dr Baires in 1 week. BMP in 1 week - Dx: Hypernatremia. Considerations for hospice could be entertained if patient's oral drive not improving despite maximal efforts.
--- NOTE | 2017-10-22 18:22 | Discharge Summary ---
Discharge Information Date of admission: 10/05/17 10:07 Anticipated date of discharge: 10/19/17 Attending Physician: Nitesh Gil MD Primary care physician: Collins Tran MD Consults: Speech Therapy - Discharge Diagnosis (1) Hypernatremia Status: Resolved Discharge diagnosis Severe hypernatremia [163] POA - resolved. Associated conditions and complications UTI with E. coli -finished seven-day course of Rocephin on 10/12/2017. Leukocytosis, POA Increased monocyte count-mono screen is negative Hypokalemia, not POA - resolved Recent dental infection Dysphagia Post measles encephalitis Spastic quadriplegia Allergic rhinitis HX of MRSA abscesses Hx of aspiration pneumonia Hx of recurrent small bowel obstruction Hx of UTI (urinary tract infection) Dextroscoliosis Constipation Hx of fecal impaction of colon GERD (gastroesophageal reflux disease) Concerns for dental infection recently-maxillofacial CT obtained 10/12/2017 - Clindamycin 10/08/17-10/15/17 Poor by mouth intake-improved Malnutrition with low prealbumin - Laboratory Labs: Admit Lab 10/06/17 03:54 WBC 14.9 H Hgb 14.9 Hct 46.6 MCV 96.3 Plt Count 261 Neutrophils % (Manual) 50.0 Lymphocytes % (Manual) 15.0 L Monocytes % (Manual) 32.0 H Eosinophils % (Manual) 1.0 Basophils % (Manual) 2.0 Admit Lab 10/04/17 10/04/17 05:56 11:23 Sodium 163 H* Troponin I < 0.012 Admit Lab 10/04/17 09:11 Ur Collection Type Urine, void-cc/notcc Urine Color Aydee Urine Clarity Cloudy Urine pH 6.0 Ur Specific Meherrin 1.025 Urine Protein 2+ A Urine Glucose (UA) Negative Urine Ketones Negative Urine Occult Blood 3+ A Urine Nitrate Positive A Urine Bilirubin 1+ A Urine Urobilinogen 4.0 A Ur Leukocyte Esterase 2+ A Urine RBC 10-20 H Urine WBC Tntc H Urine WBC Clumps Few Urine Bacteria 4+ H 10/19/17 04:23 10/19/17 04:23 - Radiology Radiology: Date of Exam: 10/04/17 PROCEDURE: XR abdomen 1V Findings: Diffusely gas-filled small and large bowel without focal dilatation or evidence of acute obstruction. No gross free air on these supine views. Mild stool burden in the colon. Bony structures show no acute findings. Impression: No evidence of acute obstruction. Date of Exam: 10/04/17 Type of Exam: XR chest 1V Findings: Chest appears grossly stable. No focal consolidative pneumonia, gross pleural effusion or pneumothorax. Patient is rotated and angulated. Cardiomediastinal contours are grossly stable. Prior left IJ line has been removed. Overlying attending leads. Significant scoliosis in the thoracic spine. Impression: Grossly stable chest without acute cardiopulmonary disease. Date of Exam: 10/08/17 Type of Exam: XR chest 1V Findings: There is moderate dilated bowel below the left and right hemidiaphragm with expiratory technique of the lung. Trachea is midline. Heart size is normal. The lungs are clear. There is no focal opacity to suggest atelectasis or pneumonia. No mediastinal or hilar adenopathy. No pleural effusion. There is no significant tortuosity of the descending thoracic aorta. There is mild degenerative disc disease of the thoracic spine. IMPRESSION: Expiratory exam with bibasilar atelectasis and moderate dilated bowel below the diaphragm which may represent stomach or large bowel. Date of Exam: 10/12/17 Type of Exam: CT maxillofacial wo contrast Findings: No acute maxillofacial fracture. Exam is limited by motion artifact. No fluid collection or abscess seen. The globes are intact. Lenses are located. Significant brain atrophy noted incidentally. Small dental caries present in the right maxillary incisors. Large alma seen in the right second premolar. No periapical abscess noted. Mild degenerative change in the cervical spine. 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 No CT evidence of periapical abscess formation. Date of Exam: 10/16/17 Type of Exam: XR chest 1V Findings: Lungs are stable in appearance. No new or worsening airspace disease. No gross pleural effusion or pneumothorax. Heart size and mediastinal contours are grossly stable allowing for rotation. Pulmonary vascularity appears normal. Distended bowel loops seen beneath the diaphragm, less distended than the prior study. Severe scoliosis. Impression: Stable chest without focal pneumonia. History of Present Illness HPI: Fermin Dougherty is a 57 year old male who was admitted to the hospitalist service for severe hypernatremia (163). 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 History was obtained from his nurse at [facility]: Bradly has not been eating well for the last 2-3 weeks. He will only have a couple bites, if anything, but sometimes they can encourage him to drink a Mighty Shake. He has been clamping his lips together each time thickened liquids were offered. He's lost nearly 20 lbs over the last couple of months. The staff there ensure that he has a bowel movement at least every 2 days because he has a history of bowel obstructions. Sometimes his bowel movements are purely mucoid , but he did have a medium sized bowel movement on 10/03/17. He has not had a fever or any other signs of illness or changes, though it's been recently recommended that he have all his teeth extracted. He was on antibiotics in August for a dental infection. He was seen by Dr. Tran on 10/02/17, who ordered labs which were drawn on 10/04/17. Once the abnormal sodium level was reported, Dr. Tran recommended further evaluation at the hospital. For complete details of the H&P refer to that document. Objective Vital signs: Temperature 97.6 F 10/19/17 07:21 Pulse Rate 69 10/19/17 07:21 Respiratory Rate 13 10/19/17 07:21 Blood Pressure 118/68 10/19/17 07:21 Pulse Oximetry 100 10/19/17 07:21 Rhythm: Normal Sinus Rhythm Height/Weight/BMI: Height 1.45 m Weight 50.1 kg Body Mass Index 20.9 Hospital Course This is a general summary of the patient's hospital course. For more details refer to the complete medical record. Hospital course: 10/04/17 Admission - OBS status Admit to the hospitalist service, observation status. Recheck Na now and trend every 6 hours. Start D5W at 60 mL/hr with a goal sodium reduction of no more than 10 mEq/L over the next 24 hours. History of SBO: check abdominal film. UA indicative of UTI, minimally elevated wbc, however he is afebrile. He is incontinent of B/B. Send for culture and monitor symptoms for now. Consult speech therapy. Of note, PEG placement has been considered but EGD in 2014 revealed a gastric anatomy that was not conducive to PEG placement. Other pertinent labs checked this am: Hgb 15.6, K 3.9, BUN 28, Cr 0.8, TSH 0.65 , prealbumin 26.5. Code status: DNR. 10/05/17 Given persistent severe hypernatremia, will change status to inpatient. Continue to monitor serial sodium levels every 6 hours. Sodium does continue to slowly trend down. Continues to be on D5W at 60 ML per hour. Discussed with speech therapy. Recommends pured diet with syrup and nectar fluids and crushed medications. Encourage PO intake. Awaiting C/S of urine prior to initiation of antibiotic therapy, as this may be asymptomatic bacteruria. Patient does not appear to have any acute symptoms and does not appear septic at this time. We will continue to follow routine labs, and monitor for fever. At this time Urine culture reveals no growth. 10/06/17 Sodium continues to trend down slowly, today at 151. Potassium remains normal In culture did grow positive for Escherichia coli. Patient started on IV Rocephin for antimicrobial coverage. White count was noted to be elevated at 14.9 this morning. He remains afebrile Continue to encourage oral intake- pureed with thickened liquids 10/07/17 Sodium continues to Improve- NA today 148. Continues on D5W IV fluids; with decreased potassium, will change to D5W with 20mEq KCl at 75cc/hr. Continues on IV Rocephin for antimicrobial coverage. Hypokalemia potassium 3.2 today. Will given one time PO dose of potassium supplementation Pureed with thickened liquids. 10/08/17 WBC increased to 17.3 despite ceftriaxone-sensitive E. coli UTI. Will check CXR because of aspiration history. Consider dental etiology; will start clindamycin. Gross exam does not correlate with a deep space inspection since he is able to open his mouth to eat and swallow without difficulty, but we have not been successful in inspecting his oral cavity. This would require sedation. We do know that he had a recent dental infection and is due to have all his teeth pulled out. Sodium decreased to 145. Oral intake still poor; continue IVF. Hypokalemia has been corrected. CXR not showing infiltrate. Increased bowel gas noted. Nursing to give fleets to help motivated bowel gas. 10/09/17 WBC continues to trend up (WBC 21.8) with 2% bandemia. Patient remains afebrile. Continue treatment of E.coli UTI with Rocephin (day 3). Continue clindamycin for possible dental infection (day 1). Gross exam does not correlate with a deep space inspection since he is able to open his mouth to eat and swallow without difficulty, but we have not been successful in inspecting his oral cavity. This would require sedation. We do know that he had a recent dental infection and is due to have all his teeth pulled out. Schedule acetaminophen 650mg QID to help pain. CXR revealed bibasilar atelectasis. Continue to monitor respiratory function closely. Sodium stable at 145. Oral intake poor. Continue D5w with KCl at 60cc/hr. 10/10/17 WBC improved to 15.2. Continue Clinda (started 10/08) for suspected oral infection and Rocephin for E. coli UTI (started 10/06) Sodium improved to 145, but oral liquid intake is poor and meal intake is variable. His weight is decreasing. Do not feel his intake is adequate enough to safely stop IVF at this time. May need to have conversation with his sister regarding TPN if appetite does not improve. Previous attempt at PEG tube was unsuccessful. He appears to be in pain: he had previously been on scheduled Tramadol prior to admission; will resume Tramadol QID. 10/11/17 White count continues to decrease, currently at 12.6. Continue clindamycin, which was started on 10/08/17 for suspected oral infection and Rocephin for Escherichia coli UTI, which was started on 10/02/41. Sodium improved to 144. Oral intake is still poor, howeve, he has a history of poor oral intake. Will discontinue IV fluids and reassess after breakfast and lunch. Continue tramadol and Tylenol for pain. 10/12/17 WBC increased to 14.1. Continue clindamycin for suspected oral infection; Rocephin for Escherichia coli UTI While Na improved to 143, he is not taking in enough oral liquids or nutrition to sustain life. At this point, will restart IVF (D5 1/2NS @ 60 mL/hr) but we will need to have a conversation regarding goals of care with the patient's sister/DPOA. 10/14/17 The patient has been eating and drinking well the past 2 days. We'll discontinue IV fluids. Possible discharge soon back to his residential if he continues to eat and drink well. Continue clindamycin for now for possible dental infection. The patient did have a bowel movement yesterday. We'll give a Dulcolax suppository again today. He has history of constipation and fecal impaction. 10/15/17 Eating has improved but he's not drinking enough liquids. His sodium has been climbing since IVF were dc'd, and this am is up to 147. Continue to encourage PO fluids; if sodium continues to climb we may need to resume fluids. Discussed with nursing. Maxillofacial CT scan was negative for abscess. Clindamycin dc'd today. He does not appear to be in distress or pain. 10/16/17 Very diaphoretic but no fever. WBC increased slightly to 11.2. Rocephin was discontinued on 10/12 and Clinda was stopped on 10/15. Restart D5 1/2 NS at 75 mL/ hr. BM on 10/14/17, will ask nurse to give dulcolax suppository now, and fleet's if needed. 10/17/17 Did call patients DPOA, sister Meghana to discuss oral intake status and forward plan of care. She feels that his PO intake is based on who is feeding him. She feels he may do better with oral intake with his familiar care givers. We will meet her this afternoon to discuss plans. NA remains up at 145 and potassium decreased at 3.4. Continue D5 1/2 NS for hydration. May need to consider palliative care. Has long (30 minute) care plan discussion with pt's sister, CM, speech therapy, and transitional care principal planner from [facility]. Sister raised good concerns about ways to help his oral intake. She's resistant to thickener (as he's never needed them in the past), desiring him to drink regular water. Nursing and speech in agreement to make changes in feeding. 10/18/17 Slight increase in sodium to 147; change IVF to D5W at 75cc/hr. Continue to monitor labs. Continue to encourage oral intake. Speech changed liquids back to regular instead of thickened per family request. Anticipate discharge in near future. Continue current care plan. 10/19/17 Doing well and medically stable. Hypernatremia resolved (Na 143). Electrolytes stable. Blood counts stable. Vital signs stable. Continue to encourage oral intake. Refused applesauce this morning. Will discharge to [facility] for continuation of care. Encourage oral intake. Oral consistency as per sister's wishes - not wanting him on thickener. Will have pt follow up with Dr Tran in 1 week. Recheck BMP in 1 week to monitor sodium. See orders for details. Time spent with patient: discharge greater than 30 minutes Resuscitation Status: Do Not Resuscitate Discharge Plan - Discharge Disposition Discharge Date: 10/19/17 Disposition: 04 To [facility] Home/Facility *Condition: Stable Reason For Visit (Visit label in EMR): hypernatremia - Discharge Medications *Discharge Medications: Continue Magnesium Hydroxide [Milk of Magnesia] 30 ml PO Q12H PRN PRN Reason: Constipation Mag Hydrox/Aluminum Hyd/Simeth [Alum-Mag Hydroxide-Simeth Liq] 30 ml PO Q4H PRN PRN Reason: Indigestion Fleet Phospho-Soda Enema [Fleet Enema] 1 enema RECTALLY DAILY PRN PRN Reason: Constipation Gabapentin [Neurontin] 100 mg PO BID Peg 3350 238 G Bottle [Miralax] 17 gm PO DAILY Acetaminophen [Acetaminophen Extra Strength] 1,000 mg PO TIDWM Senna + Docusate [Senna Plus Tablet] 2 tab PO PM Bisacodyl Supp [Dulcolax] 10 mg RECTALLY HS Tramadol [Ultram] 50 mg PO DAILY PRN #30 tab PRN Reason: Pain Petrolatum,White/Lanolin [Vitamin A and D Ointment] 1 applicatio TP BID Tramadol [Ultram] 50 mg PO QID #120 tab Discontinued Acetaminophen Supp [Tylenol Supp] 650 mg RECTALLY Q4H PRN PRN Reason: Fever - Discharge Packet/Instructions *Diet: Pureed diet. May have regular liquids in sippy cup. Needs feeding assistance. Encourage oral intake of foods/liquids. *Activity: Up with assistance. Wheelchair for mobility *Pain Management/Treatment: Tylenol and tramadol routinely. *Wound Care: n/a *Expected Signs/Symptoms: Improvement of oral intake. *Notify Physician if: Temp >100.4. Nausea/vomiting. *During Business Hours Contact: Nursing staff at [facility] *After Business Hours Contact: Nursing staff at [facility] *Pending Lab/Results: No Pending Lab - Referrals/Follow Up *Referrals/Follow Up: Collins Tran MD [Family Provider] - - Patient Handouts Patient Handouts: Hypernatremia (GEN) - Dismissal Complete Discharge Instructions are:: Complete Physician Narrative - Narrative Physician: Nitesh Gil MD Attestation Narrative: Date: 10/22/17 Time: 1818 I have independently interviewed and examined patient prior to discharge; see my progress note for details. Medically stable for discharge.
== END 2017-10-19 14:35 | DRG 640 ==
LOC: ED 08:13 → MED 08:13 → SUATTDRO 10-05 10:07
PROVIDERS: ADMIT Internal Medicine Infectious Disease; ATTEND Hospitalist